=== PATIENT | male | born 1945 | race Caucasian/White ===

== ENCOUNTER → 2020-09-25 10:55 | Outpatient (BNVA) | payer MEDICARE, SELFPAY | PROVIDERS: Family Provider Nurse Practitioner Family; PCP Nurse Practitioner Family; Visit Provider Nurse Practitioner Family | DX: I10 Essential (primary) hypertension (principal); E11.9 Type 2 diabetes mellitus without complications; Z68.26 Body mass index [BMI] 26.0-26.9, adult; R03.0 Elevated blood-pressure reading, without diagnosis of hypertension | CPT/HCPCS: 80053; 80061; 83036; 84439; 84443 ==

== ENCOUNTER 2021-03-19 13:29 | Emergency (ER) | payer MEDICARE, SELFPAY ==
--- NOTE | 2021-03-19 13:32 | CT_ITS ---
WS: [id number] CT CERVICAL SPINE HISTORY: fall TECHNIQUE: Contiguous 2.5 mm axial imaging performed through the entire cervical spine. Sagittal and coronal reformats also performed. All CT scans at [facility] use at least one of these do se optimization techniques: automated exposure control; mA and/or kV adjustment per patient size (inc ludes targeted exams where dose is matched to clinical indication); or iterative reconstruction. DLP: 720.35 mGy.cm COMPARISON: None available. Posterior cervical alignment is normal. No fractures. Craniocervical junction is normally aligned. La teral masses of C1 and C2 are aligned. There is a mildly sclerotic appearance to the C5 vertebral bod y. C2-C3: Normal. C3-C4: Shallow central disc protrusion. C4-C5: Shallow central disc protrusion and mild LEFT foraminal narrowing. C5-C6: Mild osteophytic ridging resulting in mild bilateral foraminal stenosis. C6-C7: Moderate osteophytic ridging and broad-based central disc protrusion. Mild central and bilater al foraminal stenosis. C7-T1: Normal. Soft tissues are normal. Lung apices are clear. CT/CT cervical spin wo con* [id number] IMPRESSION: 1. No acute cervical spine fracture. 2. Very minimally sclerotic C5 vertebral body. Not a typical appearance for be nign hemangioma. 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 Consider follow-up bone scan imaging.
--- NOTE | 2021-03-19 13:32 | CT_ITS ---
WS: [id number] CT HEAD NONCONTRAST HISTORY: trauma/N/V TECHNIQUE: Contiguous axial imaging performed through the brain in 2.5 mm imaging. Bone and soft tiss ue windows. Sagittal and coronal reformats reviewed. All CT scans at [facility] use at le ast one of these dose optimization techniques: automated exposure control; mA and/or kV adjustment pe r patient size (includes targeted exams where dose is matched to clinical indication); or iterative r econstruction. DLP: 953.81 mGy.cm COMPARISON: None available. No acute intracranial hemorrhage, midline shift or mass effect. Mild atrophy and mild chronic microvascular ischemic disease. Ventricles: Normal size with no hydrocephalus. Paranasal sinuses: As visualized are clear. Mastoid air cells: Well pneumatized. Calvarium and scalp: Skull is intact with no soft tissue edema or swelling. CT/CT head wo con* [id number] IMPRESSION: No acute intracranial hemorrhage or edema.
[2021-03-19 14:13] VITALS: BP 155/85; PULSE 66; RESP 18; TEMP 36.8; O2SAT 97; BMI 27.2
--- NOTE | 2021-03-19 17:23 | ED_ITS ---
HPI - Head Injury General: Chief complaint: Head Injury Stated complaint: HEAD ISSUES Time Seen by Provider: 03/19/21 17:22 History of Present Illness: HPI Narrative: 75-year-old male presents emergency room with complaint of dizziness. He fell and hit his head about 2 weeks ago has had dizziness and lightheadedness since no loss of consciousness no vomiting. Is worse when he first stands up better when he has sitting or lying down. He has a history of diabetes mellitus he is on lisinopril. He is not on any anticoagulants. He does take aspirin daily. MD Complaint: head injury and fall Mechanism of Injury: fall Place: home Loss of Consciousness: no Location of injury: parietal Severity: moderate Radiation: none Other Injuries: none Associated symptoms: Deny amnesia, confusion, nausea, neck pain, numbness, syncope, tingling, vertigo, visual changes, vomiting or weakness Review of Systems Const: Denies: fever(s), chills, body aches, change in appetite, fatigue or malaise ENMT: Denies: throat pain, ear or mastoid pain, nasal discharge or nasal congestion Card: Denies: syncope Resp: Denies: dyspnea, productive cough or non-productive cough GI: Denies: nausea or vomiting : Denies: flank pain, dysuria, urinary frequency or urinary urgency Musc: Denies: neck pain Skin/Breast: Denies: rash or pruritus Neuro: Denies: vertigo or confusion PFS ED PFSH: Medical History HTN (hypertension) Type 2 diabetes mellitus Social History Smoking and tobacco status: never smoked Physical Exam Const: COMMON NORMALS: no acute distress GENERAL APPEARANCE: cooperative and comfortable ORIENTATION/CONSCIOUSNESS: Yes awake, Yes oriented to person, Yes oriented to place and Yes oriented to time HENMT: COMMON NORMALS: normocephalic, atraumatic and hearing grossly normal bilaterally HEAD & SCALP: normocephalic and atraumatic Neck/C-Spine: COMMON NORMALS: no JVD Lymph: LYMPHATIC: no lymphadenopathy noted and no lymphedema noted Resp: COMMON NORMALS: normal respiratory effort, No retractions, No use of accessory muscles and clear to auscultation bilaterally AUSCULTATION: clear to auscultation bilaterally Cardio: COMMON NORMALS: no JVD, regular rate, regular rhythm and No murmurs present (Cardio) RATE: regular rate RHYTHM: regular rhythm GI: COMMON NORMALS: Soft to palpation and No hepatosplenomegaly present AUSCULTATION: Yes normoactive bowel sounds PALPATION: Yes Soft to palpation, No Tenderness to palpation present (GI), No Guarding due to palpation present (GI) and Yes No hepatosplenomegaly present Extremity: COMMON NORMALS: normal to inspection, capillary refill normal, no clubbing, cyanosis or edema, no calf tenderness and no pedal edema Neuro: SENSORIUM/ORIENTATION: Yes oriented to person, Yes oriented to place and Yes oriented to time Skin: COMMON NORMALS: no rashes or lesions noted GENERAL SKIN EXAM: no ra shes or lesions noted Course Vital Signs: Vital signs: Vital Signs Temperature 98.2 F 03/19/21 14:13 Pulse Rate 71 03/19/21 19:56 Respiratory Rate 17 03/19/21 19:56 Blood Pressure 145/92 03/19/21 19:56 Pulse Oximetry 96 03/19/21 19:56 MDM - Head Injury MDM Narrative: Medical decision making narrative: No acute findings on the imaging. There is a question of some sclerotic area on the C5 vertebrae will refer him back to primary care for further follow-up discharge home for now. Lab Data: Labs: Lab Results 03/19/21 03/19/21 Range/Units 19:10 19:10 WBC 5.4 (4.0-10.0) 10^3/ uL RBC 5.32 H (4.1-5.3) 10^6/u L Hgb 15.5 (11.7-16.6) g/dL Hct 47.9 (42.0-52.0) % MCV 90.0 (80-94) fL MCH 29.1 (28.0-34.0) pg MCHC 32.4 (30.0-36.0) g/dL RDW 12.8 (12.1-15.1) % Plt Count 171 (130-400) 10^3/c mm MPV 10.1 (7.4-10.4) fL Neut % (Auto) 60.6 % Lymph % (Auto) 27.9 % [place] % (Auto) 8.7 % Eos % (Auto) 2.0 % Baso % (Auto) 0.4 % Neut # (Auto) 3.28 (1.8-7.7) 10^3/u L Lymph # (Auto) 1.5 (0.8-4.8) 10^3/u L [place] # (Auto) 0.5 (0.2-0.9) 10^3/u L Eos # (Auto) 0.1 (0.0-0.8) 10^3/u L Baso # (Auto) 0.0 (0.0-0.1) 10^3/u L Nucleated RBC % (a uto) 0 % Nucleated RBCs # 0.0 /100WBC Sodium 138 (136-145) mmol/L Potassium 4.1 (3.5-5.1) mmol/L Chloride 101 (98-107) mmol/L Carbon Dioxide 30 H (22-29) mmol/L Anion Gap 11.1 (5-19) BUN 19 (8-23) mg/dL Creatinine 0.8 (0.7-1.2) mg/dL GFR Calculation Not Reportable Glucose 76 (65-115) mg/dL Calculated Osmolal ity 287 (285-295) mOsm/k g Calcium 8.8 (8.5-10.5) mg/dL Discharge Plan Discharge Patient Disposition: Home Clinical Impression: Fall, HTN (hypertension), Type 2 diabetes mellitus Condition: Stable Prescriptions: No Action aspirin [Adult Aspirin Regimen] 81 mg tablet,delayed release (DR/EC) 81 mg PO DAILY RF: 0 glimepiride 2 mg tablet 2 mg PO BID Qty: 180 RF: 1 lisinopril 20 mg tablet 20 mg PO DAILY Qty: 90 RF: 1 Janumet 50-1,000 mg tablet 1 tab PO BEDTIME RF: 0 Discharge Orders: Discharge ED (Routine); Ordered 03/19/21 Ordered By: Norm Frances Referrals: Neeru Hickey NP [Primary Care Provider] - Discharge Diet: Usual diet Discharge Activity: Increase activity as tolerated Patient Instructions: Opioid Safety Coding Level of Care Code ED Technical Engineer for Lisetteg Fwd Exam Comprehensive
--- NOTE | 2021-03-19 17:27 | ECG_ITS ---
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 Measurements Intervals [place] Rate: 65 P: 47 [place]: 193 QRS: -49 QRSD: 106 T: -7 QT: 384 QTc: 401 Interpretive Statements SINUS RHYTHM WITH OCCASIONAL ECTOPIC PREMATURE COMPLEXES PATTERN CONSISTENT WITH PULMONARY DISEASE LEFT ANTERIOR FASCICULAR BLOCK [QRS AXIS <= -45, QR IN I, RS IN II] NONSPECIFIC T-WAVE ABNORMALITY Compared to ECG 02/20/2019 05:35:38 Left anterior fascicular block now present Left-axis deviation no longer present T-wave abnormality still present Electronically Signed On 03-19-2021 19:23:25 CDT by James Delgado M.D. [email or web address].Overlay Studio/store/[id number]
--- NOTE | 2021-03-19 19:01 | PC.NURSE ---
Report received from PAM Nicholson and care transferred to PAM Marcial
[2021-03-19 19:15] VITALS: BP 173/104; BP 187/101; BP 195/93; PULSE 62; PULSE 70; PULSE 72
[2021-03-19 19:17] LABS: Basophils % 0.4 %; Eosinophils # 0.1 10^3/uL (0.0-0.8); Hematocrit 47.9 % (42.0-52.0); Hemoglobin 15.5 g/dL (11.7-16.6); Lymphocytes # 1.5 10^3/uL (0.8-4.8); Lymphocytes % 27.9 %; Mean Corpuscular HGB Conc 32.4 g/dL (30.0-36.0); Mean Corpuscular Hemoglobin 29.1 pg (28.0-34.0); Mean Platelet Volume 10.1 fL (7.4-10.4); Monocytes # 0.5 10^3/uL (0.2-0.9); Monocytes % 8.7 %; Neutrophils # 3.28 10^3/uL (1.8-7.7); Neutrophils % 60.6 %; Nucleated Red Blood Cells % 0 %; Platelet Count 171 10^3/cmm (130-400); Red Blood Count 5.32 10^6/uL (4.1-5.3); Red Cell Distribution Width 12.8 % (12.1-15.1); White Blood Count 5.4 10^3/uL (4.0-10.0)
[2021-03-19 19:18] VITALS: PULSE 67; RESP 19; O2SAT 97
[2021-03-19 19:34] LABS: Anion Gap 11.1 (5-19); Blood Urea Nitrogen 19 mg/dL (8-23); Calcium 8.8 mg/dL (8.5-10.5); Carbon Dioxide 30 mmol/L (22-29); Chloride 101 mmol/L (98-107); Glucose 76 mg/dL (65-115); Osmolality Calculated 287 mOsm/kg (285-295); Potassium 4.1 mmol/L (3.5-5.1); Sodium 138 mmol/L (136-145)
[2021-03-19 19:56] VITALS: BP 145/92; PULSE 71; RESP 17; O2SAT 96
--- NOTE | 2021-03-27 11:11 | DCPLANNER ---
manager oncology had message to schedule a follow up appointment for patient with his primary care physician. Patient had a follow up appointment scheduled with his primary care on 03.25.21 and he attended that appointment.
== END 2021-03-19 19:59 | disposition home or self-care (01) ==
PROVIDERS: Emergency Provider Family Medicine; PCP Nurse Practitioner Family
DX: I10 Essential (primary) hypertension (principal); E11.9 Type 2 diabetes mellitus without complications; Z79.82 Long term (current) use of aspirin; W19.XXXA Unspecified fall, initial encounter
CPT/HCPCS: 36415; 70450; 72125; 80048; 85025; 93005; 99283

== ENCOUNTER → 2021-10-21 14:10 | Outpatient (BNVA) | payer MEDICARE, SELFPAY | PROVIDERS: PCP Nurse Practitioner Family; Visit Provider Nurse Practitioner Family | DX: E11.9 Type 2 diabetes mellitus without complications (principal); I10 Essential (primary) hypertension; Z68.27 Body mass index [BMI] 27.0-27.9, adult | CPT/HCPCS: 80053; 80061; 83036; 84443 ==

== ENCOUNTER → 2022-06-11 10:00 | Outpatient (BNVA) | payer MEDICARE, SELFPAY | PROVIDERS: PCP Nurse Practitioner Family; Visit Provider Nurse Practitioner Family | DX: E11.9 Type 2 diabetes mellitus without complications (principal); I10 Essential (primary) hypertension | CPT/HCPCS: 80053; 80061; 83036 ==

== ENCOUNTER → 2022-10-01 14:27 | Outpatient (BNVA) | payer MEDICARE, SELFPAY | PROVIDERS: PCP Nurse Practitioner Family | DX: J02.9 Acute pharyngitis, unspecified (principal); J06.9 Acute upper respiratory infection, unspecified | CPT/HCPCS: 87400 ==

== ENCOUNTER 2022-10-02 22:42 | Inpatient (IN) | payer MEDICARE, SELFPAY ==
[2022-10-02 22:49] VITALS: BP 167/109; PULSE 112; RESP 22; TEMP 36.8; O2SAT 92; BMI 26.5
--- NOTE | 2022-10-02 22:51 | ECG_ITS ---
[facility] Test Date: 2022-10-02 Pat Name: Alexander Ferrell Department: Room: Gender: Male Security Services Manager: : 1945 Requested By: Chrsi Comer Order Number: [id number] Frankie MD: Felicita Donaldson M.D. Measurements Intervals [place] Rate: 105 P: 52 AL: 187 QRS: -76 QRSD: 122 T: 95 QT: 341 QTc: 452 Interpretive Statements SINUS TACHYCARDIA LEFT ANTERIOR FASCICULAR BLOCK [QRS AXIS <= -45, QR IN I, RS IN II] MODERATE ST DEPRESSION [0.05+ mV ST DEPRESSION] ABNORMAL QRS-T ANGLE [QRS-T AXIS DIFFERENCE > 60] INTERPRETATION BASED ON A DEFAULT AGE OF 40 YEARS Compared to ECG 03/19/2021 18:21:05 ST (T wave) deviation now present Sinus rhythm no longer present T-wave abnormality no longer present Electronically Signed On 10-04-2022 13:43:30 IN HOME SALES CONSULTANT by Felicita Donaldson M.D. [id number] pat
[2022-10-02 23:00] VITALS: BP 134/82; PULSE 95; RESP 26; O2SAT 92
--- NOTE | 2022-10-02 23:04 | XRR_ITS ---
PROCEDURE INFORMATION: Exam: XR Chest Exam date and time: 10/03/2022 12:14 AM Age: 77 years old Clinical indication: Shortness of breath; Additional info: SOB TECHNIQUE: Imaging protocol: Radiologic exam of the chest. Views: 1 view. COMPARISON: CR XR chest 1V [id number] 02/20/2019 5:13 AM FINDINGS: Lungs: Left diaphragmatic eventration with left lower lobe atelectasis versus minimal infiltrate. Right mid lung field chronic interstitial fibrotic changes. Pleural spaces: Unremarkable. No pleural effusion. No pneumothorax. Heart/Mediastinum: Unremarkable. No cardiomegaly. Bones/joints: Unremarkable. XR/XR chest 1V portable [id number] IMPRESSION: 1. Left diaphragmatic eventration with left lower lobe atelectasis versus minimal infiltrate. 2. Right mid lung field chronic interstitial fibrotic changes.
[2022-10-02 23:15] VITALS: BP 142/113; PULSE 98; RESP 33; O2SAT 91
--- NOTE | 2022-10-02 23:15 | ED_ITS ---
HPI - SOB/Dyspnea General: Chief Complaint: Shortness of Breath/Dyspnea Stated Complaint: SOB Time Seen by Provider: 10/02/22 22:47 Source: patient Mode of arrival: ambulatory Limitations: no limitations History of Present Illness: HPI Narrative: 77-year-old male who states that he has been having cough congestion or shortness of breath the last 2 to 3 days. He states he has had some body aches low-grade fevers he is not minimal distress here he denies any pain he denies an y vomiting or diarrhea denies any worsening improving factors. Associated symptoms: Deny abdominal pain, chest pain, fever(s), nausea or vomiting Review of Systems Const: Denies: fever(s), chills, body aches or change in appetite Eyes: Denies: blurry vision or eye discomfort ENMT: Denies: throat pain or dental pain Card: Denies: chest pain Resp: Reports: dyspnea GI: Denies: abdominal pain, nausea, vomiting or diarrhea : Denies: dysuria Musc: Denies: neck pain or back pain Skin/Breast: Denies: rash Neuro: Denies: headache(s) Psych: Denies: depression [place]/Lymph: Denies: easy bruising All/Imm: Denies: urticaria PFSH ED PFSH: Medical History HTN (hypertension) Type 2 diabetes mellitus Social History Smoking and tobacco status: never smoked Physical Exam Const: COMMON NORMALS: patient oriented x3 HENMT: COMMON NORMALS: normocephalic and atraumatic HEAD & SCALP: normocephalic and atraumatic Eye: COMMON NORMALS: Equal, round and reactive pupils present and EOMs intact bilaterally PUPIL: Yes Equal, round and reactive pupils present Neck/C-Spine: COMMON NORMALS: full ROM and supple Chest: COMMONS NORMALS: normal inspection of the chest and normal palpation of entire chest wall Resp: COMMON NORMALS: normal respiratory effort, No retractions, No use of accessory muscles and clear to auscultation bilaterally AUSCULTATION: clear to auscultation bilaterally Cardio: COMMON NORMALS: regular rate, regular rhythm and No murmurs present (Cardio) RATE: regular rate RHYTHM: regular rhythm GI: COMMON NORMALS: Normal to inspection, nondistended, normoactive bowel sounds present, Soft to palpation, non-tender and no masses PALPATION: Yes Soft to palpation Extremity: COMMON NORMALS: normal to inspection and full ROM Neuro: COMMON NORMALS: patient oriented x3, moves all extremities and no focal motor deficits Psych: COMMON NORMALS: mental status grossly normal, Normal thought process present and cooperative THOUGHT PROCESS: Normal thought process present Skin: COMMON NORMALS: no rashes or lesions noted and no wounds GENERAL SKIN EXAM: no rashes or lesions noted Course Vital Signs: Vital signs: Vital Signs Temperature 98.3 F 10/02/22 22:49 Pulse Rate 89 10/03/22 01:30 Respiratory Rate 21 H 10/03/22 01:30 Blood Pressure 151/80 10/03/22 01:30 Pulse Oximetry 94 10/03/22 01:30 Oxygen Delivery Me thod 10/03/22 01:15 Oxygen Flow Rate 2 10/03/22 01:15 MDM - SOB/Dyspnea Medical Decision Making Patient presents here with shortness of breath he was found to have a pulmonary emboli on his CT scan he has no signs of heart strain troponin here is normal spoke to hospitalist will admit patient start on Lovenox. Lab Data 10/02/22 22:56 10/02/22 22:56 Labs/Radiology: Radiology Impressions Chest X-Ray 10/02/22 23:04 IMPRESSION: 1. Left diaphragmatic eventration with left lower lobe atelectasis versus minimal infiltrate. 2. Right mid lung field chronic interstitial fibrotic changes. Chest CTA 10/02/22 23:40 IMPRESSION: 1. Multiple bilateral pulmonary emboli, negative for right heart strain with an RV to LV ratio of 9.3. 2. Cardiomegaly. 3. Coronary artery atherosclerotic calcifications. 4. Trace bilateral pleural effusions. 5. Cholecystectomy. 6. Bilateral dependent atelectasis versus infiltrate. 7. 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 ADDENDUM: 10/03/22 0036 THIS REPORT CONTAINS FINDINGS THAT MAY BE CRITICAL TO PATIENT CARE. The findings were verbally communicated via telephone conference with WESLY FRANKLIN at 12:35 AM NETWORK SUPPORT MANAGER on 10/03/2022. The findings were acknowledged and understood. Laboratory Results WBC 7.8 10^3/uL (4.0-10.0) 10/02/22 22:56 RBC 6.00 10^6/uL (4.1-5.3) H 10/02/22 22:56 Hgb 17.7 g/dL (11.7-16.6) H 10/02/22 22:56 Hct 53.9 % (42.0-52.0) H 10/02/22 22:56 MCV 89.8 fl (80-94) 10/02/22 22:56 MCH 29.5 pg (28.0-34.0) 10/02/22 22:56 MCHC 32.8 g/dL (30.0-36.0) 10/02/22 22:56 RDW 12.9 % (12.1-15.1) 10/02/22 22:56 Plt Count 190 10^3/cmm (130-400) 10/02/22 22:56 MPV 10.5 fL (7.4-10.4) H 10/02/22 22:56 Neut % (Auto) 66.1 % 10/02/22 22:56 Lymph % (Auto) 22.1 % 10/02/22 22:56 [place] % (Auto) 9.8 % 10/02/22 22:56 Eos % (Auto) 1.3 % 10/02/22 22:56 Baso % (Auto) 0.1 % 10/02/22 22:56 Neut # (Auto) 5.13 10^3/uL (1.8-7.7) 10/02/22 22:56 Lymph # (Auto) 1.7 10^3/uL (0.8-4.8) 10/02/22 22:56 [place] # (Auto) 0.8 10^3/uL (0.2-0.9) 10/02/22 22:56 Eos # (Auto) 0.1 10^3/uL (0.0-0.8) 10/02/22 22:56 Baso # (Auto) 0.0 10^3/uL (0.0-0.1) 10/02/22 22:56 Nucleated RBC % (auto) 0 % 10/02/22 22:56 Nucleated RBCs # 0.0 /100WBC 10/02/22 22:56 PT 14.60 SECONDS (12.1-14.9) 10/02/22 22:56 INR 1.11 (0.8-1.2) 10/02/22 22:56 Specimen Type Arterial 10/02/22 23:12 Sample Site Radial, right 10/02/22 23:12 ABG pH 7.45 (7.35-7.45) 10/02/22 23:12 ABG pCO2 34.3 mmHg (35-45) L 10/02/22 23:12 ABG pO2 54.6 mmHg (80.0-100.0) L 10/02/22 23:12 ABG HCO3 23.5 mmol/L (22-26) 10/02/22 23:12 ABG Base Excess 0.1 mmol/L (-2.0-2.0) 10/02/22 23:12 David Test Pos 10/02/22 23:12 Hematocrit 51.3 % (42-52) 10/02/22 23:12 Hgb O2 Saturation 89.1 % (95-100) L 10/02/22 23:12 Carboxyhemoglobin 1.3 %THgb (0.4-20.1) 10/02/22 23:12 Methemoglobin 0.6 % (0.4-1.5) 10/02/22 23:12 Total Hemoglobin 16.8 g/dL (14-18) 10/02/22 23:12 O2 Delivery Device None 10/02/22 23:12 FiO2 21.0 % 10/02/22 23:12 Advertising Sales Manager ID [place] 10/02/22 23:12 Sodium 135 mmol/L (136-145) L 10/02/22 22:56 Potassium 4.3 mmol/L (3.5-5.1) 10/02/22 22:56 Chloride 100 mmol/L (98-107) 10/02/22 22:56 Carbon Dioxide 23 mmol/L (22-29) 10/02/22 22:56 Anion Gap 16.3 (5-19) 10/02/22 22:56 BUN 17 mg/dL (8-23) 10/02/22 22:56 Creatinine 0.9 mg/dL (0.7-1.2) 10/02/22 22:56 GFR Calculation Not Reportable 10/02/22 22:56 Glucose 165 mg/dL (65-115) H 10/02/22 22:56 Calculated Osmolality 285 mOsm/kg (285-295) 10/02/22 22:56 Calcium 10.0 mg/dL (8.5-10.5) 10/02/22 22:56 Total Bilirubin 1.4 mg/dL (0.15-1.2) H 10/02/22 22:56 AST 26 U/L (0-40) 10/02/22 22:56 ALT 27 U/L (0-41) 10/02/22 22:56 Alkaline Phosphatase 97 U/L (40-130) 10/02/22 22:56 Troponin T Baseline 25 ng/L (0-15) H 10/02/22 22:56 Troponin T 120 Minute 23.09 ng/L (0-15) H 10/03/22 00:55 Delta Troponin T -1.91 ABS# (0-10) L 10/03/22 00:55 NT-Pro-B Natriuret Pep 1157 pg/mL (0-450) H 10/02/22 22:56 Total Protein 7.9 g/dL (6.6-8.7) 10/02/22 22:56 Albumin 4.3 g/dL (3.5-5.2) 10/02/22 22:56 Globulin 3.6 g/dL (1.3-4.6) 10/02/22 22:56 Influenza Type A Ag negative (Negative) 10/02/22 23:11 Influenza Type B Ag negative (Negative) 10/02/22 23:11 EKG Data EKG 1: I personally reviewed and interpreted this EKG as follows: EKG Interpretation Date: 10/02/22 EKG interpretation time: 22:51 Interpretation: sinus tach hr [address] or t wave abnormalities qrs 122 qtc 402 Discharge Plan Discharge Patient Disposition: Admitted As Inpatient Clinical Impression: Pulmonary embolism Condition: Stable Prescriptions: No Action aspirin [Adult Aspirin Regimen] 81 mg tablet,delayed release (DR/EC) 81 mg PO DAILY Janumet 50-1,000 mg tablet See Rx Instructions .ROUTE .COMPLEX Qty: 180 1RF Dose Instruction: TAKE ONE TABLET BY MOUTH TWICE A DAY Rx Instructions: TAKE ONE TABLET BY MOUTH TWICE A DAY prednisone 20 mg tablet 20 mg PO BID 5 Days Qty: 10 0RF doxycycline hyclate 100 mg capsule 100 mg PO BID 5 Days Qty: 10 0RF glimepiride 2 mg tablet See Rx Instructions .ROUTE .COMPLEX Qty: 180 0RF Dose Instruction: TAKE ONE TABLET BY MOUTH TWICE A DAY Rx Instructions: TAKE ONE TABLET BY MOUTH TWICE A DAY lisinopril 20 mg tablet See Rx Instructions .ROUTE .COMPLEX Qty: 90 1RF Dose Instruction: TAKE ONE TABLET BY MOUTH ONCE DAILY Rx Instructions: TAKE ONE TABLET BY MOUTH ONCE DAILY Referrals: Neeru Hickey NP [Primary Care Provider] - Coding Level of Care Code ED Elevators Inspector for Chg Fwd Exam Comprehensive
[2022-10-02 23:17] LABS: Basophils % 0.1 %; Eosinophils # 0.1 10^3/uL (0.0-0.8); Eosinophils % 1.3 %; Hematocrit 53.9 % (42.0-52.0); Hemoglobin 17.7 g/dL (11.7-16.6); Lymphocytes # 1.7 10^3/uL (0.8-4.8); Lymphocytes % 22.1 %; Mean Corpuscular HGB Conc 32.8 g/dL (30.0-36.0); Mean Corpuscular Hemoglobin 29.5 pg (28.0-34.0); Mean Corpuscular Volume 89.8 fl (80-94); Mean Platelet Volume 10.5 fL (7.4-10.4); Monocytes # 0.8 10^3/uL (0.2-0.9); Monocytes % 9.8 %; Neutrophils # 5.13 10^3/uL (1.8-7.7); Neutrophils % 66.1 %; Nucleated Red Blood Cells % 0 %; Platelet Count 190 10^3/cmm (130-400); Red Cell Distribution Width 12.9 % (12.1-15.1); White Blood Count 7.8 10^3/uL (4.0-10.0)
[2022-10-02 23:22] LABS: INR 1.11 (0.8-1.2)
[2022-10-02 23:24] LABS: ABG PCO2 34.3 mmHg (35-45); ABG PH Result 7.45 (7.35-7.45); Arterial Blood Gas Hematocrit 51.3 % (42-52); Base Excess ABG 0.1 mmol/L (-2.0-2.0); Blood Gas Allen Test Pos; Blood Gas Operator Identificat WALCI; Blood Gas Sample Site Radial, right; Blood Gas Sample Type Arterial; Carboxyhemoglobin 1.3 %THgb (0.4-20.1); HCO3 ABG 23.5 mmol/L (22-26); HGB O2 Sat 89.1 % (95-100); Methemoglobin 0.6 % (0.4-1.5); PO2 ABG 54.6 mmHg (80.0-100.0); Total Hemoglobin 16.8 g/dL (14-18)
[2022-10-02 23:28] VITALS: PULSE 90; RESP 18; O2SAT 91
[2022-10-02] MEDS: ipratropium-albuterol 3 mL Neb INHALATION (23:29)
[2022-10-02 23:33] LABS: Troponin(5th) Baseline 25 ng/L (0-15)
[2022-10-02 23:36] LABS: Influenza A by IFA negative (Negative); Influenza B by IFA negative (Negative)
[2022-10-02 23:39] LABS: Alanine Aminotransferase 27 U/L (0-41); Albumin Level 4.3 g/dL (3.5-5.2); Alkaline Phosphatase 97 U/L (40-130); Aspartate Amino Transferase 26 U/L (0-40); Blood Urea Nitrogen 17 mg/dL (8-23); Carbon Dioxide 23 mmol/L (22-29); Chloride 100 mmol/L (98-107); Globulin 3.6 g/dL (1.3-4.6); Glucose 165 mg/dL (65-115); NT Pro B Type Natriuretic Pept 1157 pg/mL (0-450); Osmolality Calculated 285 mOsm/kg (285-295); Sodium 135 mmol/L (136-145); Total Bilirubin 1.4 mg/dL (0.15-1.2); Total Protein 7.9 g/dL (6.6-8.7)
--- NOTE | 2022-10-02 23:40 | CTR_ITS ---
PROCEDURE INFORMATION: Exam: CTA Chest With Contrast Exam date and time: 10/03/2022 12:09 AM Age: 77 years old Clinical indication: Shortness of breath; Additional info: SOB TECHNIQUE: Imaging protocol: Computed tomographic angiography of the chest with contrast. 3D rendering (Not supervised by radiologist): MIP and/or 3D reconstructed images were created by the technologist. Radiation optimization: All CT scans at this facility use at least one of these dose optimization techniques: automated exposure control; mA and/or kV adjustment per patient size (includes targeted exams where dose is matched to clinical indication); or iterative reconstruction. Contrast material: OMNIPAQUE 350; Contrast volume: 83 ml; Contrast route: INTRAVENOUS (IV); COMPARISON: CT angio chest PE protcl [id number] 01/20/2017 9:13 AM RADIATION DOSE METRICS: Total DLP (mGy-cm): 342.52 FINDINGS: Pulmonary arteries: Multiple bilateral pulmonary emboli, negative for right heart strain with an RV to LV ratio of 9.3. Aorta: Unremarkable. No aortic aneurysm. No aortic dissection. Lungs: Bilateral dependent atelectasis versus infiltrate. Pleural spaces: Trace bilateral pleural effusions. Heart: Cardiomegaly. Coronary artery atherosclerotic calcifications. Lymph nodes: Unremarkable. No enlarged lymph nodes. Gallbladder and bile ducts: Cholecystectomy. Bones/joints: Several benign-appearing hemangiomas in the spine. Soft tissues: Left hepatic lobe cyst. CT/CT angio chest PE protcl [id number] IMPRESSION: 1. Multiple bilateral pulmonary emboli, negative for right heart strain with an RV to LV ratio of 9.3. 2. Cardiomegaly. 3. Coronary artery atherosclerotic calcifications. 4. Trace bilateral pleural effusions. 5. Cholecystectomy. 6. Bilateral dependent atelectasis versus infiltrate. 7. 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
[2022-10-02 23:45] VITALS: BP 124/78; PULSE 75; RESP 32; O2SAT 90
[2022-10-02 23:51] LABS: Anion Gap 16.3 (5-19); Potassium 4.3 mmol/L (3.5-5.1)
[2022-10-03] VITALS (42 sets, daily range): BP systolic 100–173; BP diastolic 53–97; PULSE 61–94; RESP 18–33; TEMP 36.6; O2SAT 89–99; BMI 25.7
[2022-10-03] MEDS: diphenhydrAMINE 50 mg/mL SDV 1mL IVP (00:01)
[2022-10-03] MEDS: iohexol 350 mg/mL 500 mL Btl (per mL) IV (00:15)
[2022-10-03] MEDS: enoxaparin 80 mg/0.8 mL Syringe SUBCUT ×2 (00:56→12:01)
--- NOTE | 2022-10-03 01:05 | ECG_ITS ---
[facility] Test Date: 2022-10-03 Pat Name: Alexander Ferrell Department: Room: Gender: Male Riding Instructor: : 1945 Requested By: Chris Comer Order Number: [id number] Frankie MD: Felicita Donaldson M.D. Measurements Intervals [place] Rate: 94 P: 53 OR: 174 QRS: -71 QRSD: 114 T: 91 QT: 376 QTc: 470 Interpretive Statements SINUS RHYTHM PATTERN CONSISTENT WITH PULMONARY DISEASE LEFT ANTERIOR FASCICULAR BLOCK [QRS AXIS <= -45, QR IN I, RS IN II] ABNORMAL QRS-T ANGLE [QRS-T AXIS DIFFERENCE > 60] Compared to ECG 10/02/2022 22:51:48 Sinus tachycardia no longer present ST (T wave) deviation no longer present Electronically Signed On 10-04-2022 15:38:27 SPRAY GUN STRIPER by Felicita Donaldson M.D. [email or web address] [facility].Experifun/store/OM/[id number]
[2022-10-03 01:16] LABS: Troponin 5 2HR 23.09 ng/L (0-15)
[2022-10-03 01:31] LABS: Troponin 5 2HR Delta -1.91 ABS# (0-10)
--- NOTE | 2022-10-03 01:43 | P.HP_ITS ---
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 He also has been having some body aches and low-grade fevers. Not having any severe respiratory distress. Shortness of breath does not improve with anything but does slightly worsen on exertion. Denies abdominal pain, chest pain, fever, nausea, vomiting, diarrhea, chills, change in appetite. Patient does not smoke. Chest x-ray in the ER done showed right midlung field chronic interstitial fibrotic changes, left diaphragmatic eventration with left lower lobe atelectasis versus minimal infiltrate. CTA chest showed multiple bilateral pulmonary emboli, negative for right heart strain with an RV to LV ratio of 0.93. Cardiomegaly, coronary artery atherosclerotic calcifications, trace bilateral pleural effusions, several benign-appearing hemangiomas in the spine, cholecystectomy, bilateral dependent atelectasis versus infiltrate. EKG showed sinus tachycardia heart rate 105. No ST or T wave abnormalities. Patient states he is had blood clots in his legs before. He used to be on Coumadin but then developed blisters and therefore had to be taken off of the Coumadin. He is unsure why he is hypercoagulable. Denies a history of cancer. Does have a history of cancer in the family. Dad has lung cancer. Drove to [place] recently. Sedentary lifestyle. Medications/Allergies Home Medications Medication Instructions Recorded Confirmed Last Taken Type aspirin 81 mg tablet,delayed 81 mg PO DAILY 09/25/20 10/01/22 03/18/21 History release (Adult Aspirin Regimen) glimepiride 2 mg tablet See Rx Instructions .Route 04/30/22 10/01/22 Unknown Rx .COMPLEX #180 tabs sitagliptin 50 mg-metformin 1,000 See Rx Instructions .Route 06/11/22 10/01/22 Unknown Rx mg tablet (Janumet) .COMPLEX #180 tabs lisinopril 20 mg tablet See Rx Instructions .Route 06/14/22 10/01/22 Unknown Rx .COMPLEX #90 tabs doxycycline hyclate 100 mg capsule 100 mg PO BID 5 days #10 caps 10/01/22 10/01/22 Unknown Rx prednisone 20 mg tablet 20 mg PO BID 5 days #10 tabs 10/01/22 10/01/22 Unknown Rx Allergies Allergy/AdvReac Type Severity Reaction Status Date / Time codeine Allergy Unknown Verified 10/01/22 13:52 hydrocodone Allergy Unknown Verified 10/01/22 13:52 iodine Allergy ADR-Nausea Verified 10/01/22 13:52 morphine Allergy Unknown Verified 10/01/22 13:52 pregabalin [From Lyrica] Allergy ADR-Chest Verified 10/01/22 13:52 Pain warfarin [From Coumadin] Allergy Unknown Verified 10/01/22 13:52 PFSH Acute PFSH: Medical History HTN (hypertension) Type 2 diabetes mellitus Social History Smoking and tobacco status: never smoked Vitals/I&O/Wt Last Vital Signs Temp 98.3 F 10/02/22 22:49 Pulse 89 10/03/22 01:30 Resp 21 H 10/03/22 01:30 BP 151/80 10/03/22 01:30 Pulse Ox 94 10/03/22 01:30 O2 Del Method 10/03/22 01:15 O2 Flow Rate 2 10/03/22 01:15 Weight last 48 hrs Weight 83.915 kg Physical Exam Narrative: General: Alert oriented x3, patient seen laying in bed HEENT: Normocephalic, atraumatic, EOMI, breathing comfortably on 2 L nasal cannula. Cardio: Regular rate rhythm, normal S1-S2, Respiratory: There to auscultation bilaterally, no wheezes no rhonchi GI: Abdomen soft, nontender, nondistended, bowel sounds + Behavior: Appropriate and cooperative Extremities: no edema, no cyanosis Data 10/02/22 22:56 10/02/22 22:56 A&P Assessment and plan (1) Pulmonary embolism: (2) BMI 27.0-27.9,adult: (3) Type 2 diabetes mellitus: Qualifiers: Diabetes mellitus group home insulin use: without group home use Diabetes mellitus complication status: without complication Qualified Code(s): E11.9 - Type 2 diabetes mellitus without complications (4) HTN (hypertension): Qualifiers: Hypertension type: primary hypertension Qualified Code(s): I10 - Essential (primary) hypertension (5) DVT (deep venous thrombosis): Plan #Dyspnea on exertion and rest secondary to bilateral pulmonary emboli, right heart strain negative, unprovoked #History of DVT years ago, used to be on Coumadin. #Hypertension #Type 2 diabetes mellitus #Left lung lobectomy 20 years ago. Details unknown #Polycythemia, hemoglobin 17.7, hematocrit 53.9 #Elevated BNP 1157 -Dad has lung cancer. Patient has a history of DVT in the past. Used to be on Coumadin. ? Check echo ? Check venous Doppler bilateral lower extremity to rule out DVT ? Therapeutic Lovenox twice daily ? Eliquis at discharge ? May require oxygen at discharge. We will do home oxygen evaluation ? Sliding scale insulin low-dose intensity her blood sugar control. Check a CHS ? Check hemoglobin A1c, TSH ? Continue aspirin, lisinopril 20 daily ? Hold Janumet. ? Patient will require hypercoagulable work-up. He also has polycythemia ? Consider referral to hematology at discharge. He will need work-up of polycythemia as well. Patient is not a smoker. I will check EPO level. Full code DVT prophylaxis therapeutic Lovenox Attestations Medical Necessity Statement*: Greater than 2 midnight stay for acute bilateral pulmonary embolism and work-up and management of that. 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
--- NOTE | 2022-10-03 02:15 | PC.NURSE ---
Report called to ICU Dotty
--- NOTE | 2022-10-03 04:10 | USCV_ITS ---
Ferrell Alexander Age: 77 Gender: M : 1945 Exam Date: 10/03/2022 07:09 Ordering Phys: Myesha Guzman MD Technologist: Darek Moreno [place] [facility] [place] Indication: sob chest pain BP: 121 / 71 HR: 74 Rhythm: Sinus Technical Quality: Adequate MEASUREMENTS (Male / Female) Normal Values 2D ECHO LV Diastolic Diameter PLAX 4.0 cm 4.2 - 5.9 / 3.9 - 5.3 cm LV Systolic Diameter PLAX 2.6 cm IVS Diastolic Thickness 1.0 cm 0.6 - 1.0 / 0.6 - 0.9 cm IVS Systolic Thickness 1.3 cm LVPW Diastolic Thickness 0.9 cm 0.6 - 1.0 / 0.6 - 0.9 cm LVPW Systolic Thickness 1.3 cm LVOT Diameter 2.1 cm LV Ejection Fraction 2D Teich 56.2 % LV Ejection Fraction MOD 2C 64.4 % LV Ejection Fraction 2C AL 65.0 % LA Diameter 3.5 cm Aorta at Sinotubular Diameter 2.6 cm IVC Diameter 1.4 cm M-MODE Aortic Annulus Diameter 3.7 cm LA Ao Ratio MM 1.0 MV E Point Septal Separation 0.7 cm DOPPLER AV Peak Velocity 82.0 cm/s LVOT Peak Velocity 74.0 cm/s AV Area Cont Eq vti 4.4 cm squared AV Area Cont Eq pk 3.0 cm squared MV Area PHT 5.0 cm squared Mitral E to A Ratio 0.7 MV E' Velocity 28.5 cm/s Mitral E to MV E' Ratio 7.1 Mitral E to LV E' Lateral Ratio 9.5 Mitral E to LV E' Septal Ratio 5.8 TR Peak Velocity 180.3 cm/s TR Peak Gradient 13.0 mmHg TV Peak E Velocity 77.0 cm/s Right Atrial Pressure 3.0 mmHg Pulmonary Artery Systolic Pressu 16.0 mmHg PV Peak Velocity 52.0 cm/s RV Acceleration Time 0.1 s FINDINGS Left Ventricle Normal left ventricular size and systolic function, EF 62 %. Somewhat dyskinetic basal inferior wall segment.Grade I/IV diastolic dysfunction (abnormal relaxation filling pattern), normal to mildly elevated filling pressures. Right Ventricle The right ventricle is normal in size and function. Right Atrium The right atrium is normal in size. Left Atrium The left atrium is normal in size. Mitral Valve No gross abnormalities noted Aortic Valve Thickened aortic valve. Mild aortic valve calcification. Tricuspid Valve No gross abnormalities noted. Trace of tricuspid regurgitation Pulmonic Valve No gross abnormalities noted Pericardium Normal pericardium without effusion. Aorta Normal aortic annulus size. IVC Normal inferior vena cava. CONCLUSIONS Normal left ventricular size and systolic function, EF 62 %. Somewhat dyskinetic basal inferior wall segment.Grade I/IV diastolic dysfunction (abnormal relaxation filling pattern), normal to mildly elevated filling pressures. Thickened aortic valve. Mild aortic valve calcification. There is no pericardial effusion. There are no intracardiac masses. Possibly normal PA pressure Compared to the previous study from a 01/19/2017, the wall motion abnormality appears to be new Dr Felicita Donaldson MD [facility] (Electronically Signed) Final Date: 04 October 2022 08:11 S
--- NOTE | 2022-10-03 04:16 | USR_ITS ---
PROCEDURE INFORMATION: Exam: US Duplex Lower Extremity Veins, Bilateral Exam date and time: 10/03/2022 4:43 AM Age: 77 years old Clinical indication: Edema, localized; Lower extremity, bilateral; Additional info: R/O dvt TECHNIQUE: Imaging protocol: Real-time Duplex ultrasound of the bilateral extremities with 2-D palacio scale, color Doppler flow and spectral waveform analysis with image documentation. Complete exam focused on the bilateral lower extremity veins. COMPARISON: No relevant prior studies available. FINDINGS: Right deep veins: Unremarkable. The common femoral, femoral, proximal profunda femoral and popliteal veins are patent without thrombus. Normal Doppler waveforms. Normal compressibility and/or augmentation response. Right superficial veins: Saphenofemoral junction is patent without thrombus. Left deep veins: There is nonocclusive thrombosis of the left common femoral vein, and occlusive thrombosis of the proximal left femoral and proximal profunda femoral veins. The mid to distal left femoral and popliteal veins are patent without thrombus with normal Doppler waveforms and normal compressibility and/or augmentation response. Left superficial veins: Saphenofemoral junction is patent without thrombus. Soft tissues: Unremarkable. US/[id number] IMPRESSION: Nonocclusive thrombosis of the left common femoral vein, and occlusive thrombosis of the left proximal femoral and proximal profunda femoral veins.
[2022-10-03 06:29] LABS: Troponin 5 6HR 15.62 ng/L (0-15)
--- NOTE | 2022-10-03 06:30 | ECG_ITS ---
[facility] Test Date: 2022-10-03 Pat Name: Alexander Ferrell Department: Room: ICU10 Gender: Male Finisher Map And Chart: : 1945 Requested By: Chris Comer Order Number: [id number] Frankie MD: Felicita Donaldson M.D. Measurements Intervals [place] Rate: 78 P: 47 NM: 189 QRS: -70 QRSD: 119 T: 108 QT: 414 QTc: 472 Interpretive Statements SINUS RHYTHM PATTERN CONSISTENT WITH PULMONARY DISEASE LEFT ANTERIOR FASCICULAR BLOCK [QRS AXIS <= -45, QR IN I, RS IN II] ST DEVIATION AND MODERATE T-WAVE ABNORMALITY, CONSIDER ANTERIOR ISCHEMIA [-0.1+ mV T-WAVE IN V3/V4] Compared to ECG 10/03/2022 00:58:59 T-wave abnormality now present Possible ischemia now present Electronically Signed On 10-05-2022 0:03:40 PERSONAL COMPUTER NETWORK ENGINEER by Felicita Donaldson M.D. [email or web address]
[2022-10-03 07:16] LABS: LAB Peripheral Smear Sent for Review
[2022-10-03 07:34] LABS: Glucose Point of Care 254 mg/dL (70-110)
[2022-10-03] MEDS: insulin lispro 100 unit/1 mL SUBCUT ×4 (08:11→21:17)
--- NOTE | 2022-10-03 11:18 | PM.PN ---
Subjective Subjective: Seen and examined this morning. No new complaints. Currently on supplemental oxygen 2 L/min. Lower extremity Doppler showed bilateral nonocclusive DVT. Medications: Reviewed: Yes Vitals/I&O/Wt Last Vital Signs Temp 98 F 10/03/22 05:17 Pulse 76 10/03/22 10:00 Resp 27 H 10/03/22 10:00 BP 135/93 10/03/22 10:00 Pulse Ox 97 10/03/22 10:00 O2 Del Method 10/03/22 08:21 O2 Flow Rate 2 10/03/22 08:21 10/02/22 10/03/22 10/03/22 22:59 06:59 14:59 Intake Total 450 / 450 Balance 450 / 450 Weight last 48 hrs Weight 81.5 kg Weight 81.5 kg Weight 83.915 kg Physical Exam Narrative: General: No acute distress, AO x3 HEENT: PERRLA, pupils bilaterally equal and reactive, pallors not present Chest: Normal vesicular breath sounds, no added sounds, equal good air entry bilaterally CVS: S1-S2 regular, no murmurs, no tachycardia, no gallops, no rubs Abdomen: Soft, nontender, no organomegaly, bowel sounds present Neuro: No focal deficits, no facial deformity, AO x3, power 5/5 in all limbs Extremities: No clubbing no clubbing edema or cyanosis Data 10/02/22 22:56 10/02/22 22:56 A&P Assessment and plan (1) Pulmonary embolism: (2) BMI 27.0-27.9,adult: (3) Type 2 diabetes mellitus: Qualifiers: Diabetes mellitus rn long term care insulin use: without rn long term care use Diabetes mellitus complication status: without complication Qualified Code(s): E11.9 - Type 2 diabetes mellitus without complications (4) HTN (hypertension): Qualifiers: Hypertension type: primary hypertension Qualified Code(s): I10 - Essential (primary) hypertension (5) DVT (deep venous thrombosis): Plan #Dyspnea on exertion and rest secondary to bilateral pulmonary emboli, right heart strain negative, unprovoked #DVT #Hypertension #Type 2 diabetes mellitus #Left lung lobectomy 20 years ago. Details unknown possibly empyema per his description #Polycythemia, hemoglobin 17.7, hematocrit 53.9 Plan: Currently on Lovenox 1 mg/kg subcutaneous every 12 hours for PE and DVT. Lower extremity Doppler showing bilateral nonocclusive DVT. Pending echo to assess for right heart strain. ? Sliding scale insulin low-dose intensity her blood sugar control. ? Continue aspirin, lisinopril 20 daily ? Patient will likely require hypercoagulable work-up. Will refer to hematology at the time of discharge. Has a history of adverse skin reaction to Coumadin, will likely discharge on Eliquis. 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
[2022-10-03 11:59] LABS: Glucose Point of Care 260 mg/dL (70-110)
[2022-10-03 17:50] LABS: Glucose Point of Care 230 mg/dL (70-110)
[2022-10-03 21:18] LABS: Glucose Point of Care 216 mg/dL (70-110)
[2022-10-04] VITALS (22 sets, daily range): BP systolic 100–145; BP diastolic 57–76; PULSE 54–71; RESP 16–25; TEMP 36.6; O2SAT 92–99
[2022-10-04] MEDS: enoxaparin 80 mg/0.8 mL Syringe SUBCUT ×2 (00:38→12:27)
[2022-10-04 03:53] LABS: Basophils % 0.1 %; Eosinophils # 0.1 10^3/uL (0.0-0.8); Eosinophils % 0.9 %; Hematocrit 47.8 % (42.0-52.0); Hemoglobin 15.6 g/dL (11.7-16.6); Lymphocytes # 1.5 10^3/uL (0.8-4.8); Lymphocytes % 13.7 %; Mean Corpuscular HGB Conc 32.6 g/dL (30.0-36.0); Mean Corpuscular Hemoglobin 29.1 pg (28.0-34.0); Mean Corpuscular Volume 89.2 fl (80-94); Mean Platelet Volume 10.6 fL (7.4-10.4); Monocytes % 9.1 %; Neutrophils # 8.42 10^3/uL (1.8-7.7); Neutrophils % 75.7 %; Nucleated Red Blood Cells % 0 %; Platelet Count 181 10^3/cmm (130-400); Red Blood Count 5.36 10^6/uL (4.1-5.3); Red Cell Distribution Width 12.8 % (12.1-15.1); White Blood Count 11.1 10^3/uL (4.0-10.0)
[2022-10-04 04:22] LABS: Alanine Aminotransferase 18 U/L (0-41); Albumin Level 3.7 g/dL (3.5-5.2); Alkaline Phosphatase 77 U/L (40-130); Anion Gap 13.5 (5-19); Aspartate Amino Transferase 17 U/L (0-40); Blood Urea Nitrogen 29 mg/dL (8-23); Calcium 9.2 mg/dL (8.5-10.5); Carbon Dioxide 27 mmol/L (22-29); Chloride 102 mmol/L (98-107); Globulin 2.9 g/dL (1.3-4.6); Glucose 200 mg/dL (65-115); Osmolality Calculated 297 mOsm/kg (285-295); Potassium 4.5 mmol/L (3.5-5.1); Sodium 138 mmol/L (136-145); Total Bilirubin 0.7 mg/dL (0.15-1.2); Total Protein 6.6 g/dL (6.6-8.7)
[2022-10-04] MEDS: aspirin 81 mg EC Tablet PO (08:09)
[2022-10-04] MEDS: lisinopril 20 mg Tablet PO (08:09)
[2022-10-04] MEDS: insulin lispro 100 unit/1 mL SUBCUT ×2 (08:09→12:27)
[2022-10-04 08:10] LABS: Glucose Point of Care 174 mg/dL (70-110)
--- NOTE | 2022-10-04 09:34 | USCV_ITS ---
Alexander Ferrell Age: 77 Gender: M : 1945 Exam Date: 10/04/2022 10:49 Ordering Phys: Patti Wilson MD Technologist: Darek Moreno [place] [facility] [place]: lt leg blue and cool Risk Factors: Previous Vascular Surgery: RIGHT LEFT BP: 130.0 / 75.00 BP: 130.0/ 75.00 0 0 Waveform Velocity (cm/s) Velocity (cm/s) Waveform Biphasic 70.7 Iliac Prox 74.3 Biphasic Biphasic 74.6 Iliac Mid 145.7 Biphasic Biphasic Iliac Distal Biphasic 75.4 147.5 Biphasic 71.5 MIDDLE SCHOOL DIRECTOR 151.1 Biphasic Biphasic 122.3 SFA Prox 170.9 Monophasic Biphasic 130.1 SFA Mid 151.1 Biphasic Biphasic 115.7 SFA Dist 138.5 Biphasic Biphasic 60.7 POP 66.0 Biphasic Biphasic 55.5 VIDEO PRODUCTION ASSISTANT 63.7 Biphasic Biphasic 53.0 DPA 60.6 Biphasic 1.1 SOCRATES 1.1 FINDINGS Resting SOCRATES 1.1 bilaterally Mild to moderate diffuse plaques in the femoral and iliac arteries bilaterally. CONCLUSIONS Normal resting ABIs bilaterally Mild to moderate diffuse plaques in the iliac and femoral arteries bilaterally. No significant stenosis, based on the above findings Dr Felicita Donaldson MD [facility] (Electronically Signed) Final Date: 04 October 2022 17:50 S
[2022-10-04 11:44] LABS: Glucose Point of Care 272 mg/dL (70-110)
--- NOTE | 2022-10-04 13:58 | PM.DCS ---
Discharge Providers Date of Admission: 10/03/22 02:03 Date of Discharge: October 04, 2022 Attending Provider at Admission: Myesha Guzman MD Attending Provider at Discharge: Patti Wilson MD Primary Care Provider: Neeru Hickey NP Diagnoses at Discharge Discharge Diagnosis (1) Pulmonary embolism: Status: Acute (2) BMI 27.0-27.9,adult: Status: Acute (3) Type 2 diabetes mellitus: Status: Acute Qualifiers: Diabetes mellitus senior living insulin use: without intermodal dispatcher use Diabetes mellitus complication status: without complication Qualified Code(s): E11.9 - Type 2 diabetes mellitus without complications (4) HTN (hypertension): Status: Acute Qualifiers: Hypertension type: primary hypertension Qualified Code(s): I10 - Essential (primary) hypertension (5) DVT (deep venous thrombosis): Status: Acute Reason for Visit Reason for Visit: SOB Brief History: 77 year old male with past medical history of hypertension, type 2 diabetes mellitus, 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 Upon evaluation he was found to have bilateral pulmonary emboli for which she was started on anticoagulation with Lovenox 1 mg/kg subcutaneously every 12 hours. He was additionally found to have lower extremity DVT bilaterally nonocclusive. Unclear if this is residual from his previously known DVT or a new phenomenon. Because of the adverse reaction to warfarin in the past, anticoagulation has been initiated with Eliquis at discharge. He is instructed to start Eliquis 10 mg twice daily for the first 7 days and then drop the dose to 5 mg twice a day for at least 3 months. 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 Outpatient referral has been provided to heme-onc clinic. Echocardiogram was performed to evaluate for right heart strain. While the study was negative for at this, it did reveal a somewhat dyskinetic basal inferior wall segment with grade 1 diastolic dysfunction and normal to mildly elevated filling pressures. He has no clinical signs of heart failure at this time. Findings may be consistent with old KS/coronary artery disease and patient should get a stress test as outpatient. However now would not be a good time to proceed with the study as he has bilateral PE. His troponins were mildly elevated at 25 at baseline, with negative delta at 2 and 6-hour. No acute ST-T wave changes on EKG. No clinical suspicion for NSTEMI at this time. There was audible wheezing on auscultation bilaterally. He suspects that he may have COPD and may have been diagnosed with it in the past, however does not take any inhalers for the same. He will be discharged today with inhalers. He is not a known smoker. Recommended to undergo PFT after follow-up with his primary care provider. Physical Exam Narrative: General: No acute distress, AO x3 HEENT: PERRLA, pupils bilaterally equal and reactive, pallors not present Chest: Scattered wheezing to auscultation B/L CVS: S1-S2 regular, no murmurs, no tachycardia, no gallops, no rubs Abdomen: Soft, nontender, no organomegaly, bowel sounds present Neuro: No focal deficits, no facial deformity, AO x3, power 5/5 in all limbs Discharge Data Studies Completed and Pending Completed Studies During Hospitalization Category Date Time Status CTA chest [CT angio chest PE protcl [id number]] Stat Cat Scan 10/02/22 23:40 Completed XR chest 1V portable [id number] Stat Exams 10/02/22 23:04 [place] [id number] Routine Ultrasound 10/03/22 04:16 Completed CV. echo complete* [id number] Urgent Ultrasound 10/03/22 04:10 Completed Pending at discharge Category Date Time Status Erythropoietin Routine Lab 10/03/22 04:09 [place] [id number] Urgent Ultrasound 10/04/22 09:34 Taken Radiology Impressions Chest X-Ray 10/02/22 23:04 IMPRESSION: 1. Left diaphragmatic eventration with left lower lobe atelectasis versus minimal infiltrate. 2. Right mid lung field chronic interstitial fibrotic changes. Chest CTA 10/02/22 23:40 IMPRESSION: 1. Multiple bilateral pulmonary emboli, negative for right heart strain with an RV to LV ratio of 9.3. 2. Cardiomegaly. 3. Coronary artery atherosclerotic calcifications. 4. Trace bilateral pleural effusions. 5. Cholecystectomy. 6. Bilateral dependent atelectasis versus infiltrate. 7. 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 ADDENDUM: 10/03/22 0036 THIS REPORT CONTAINS FINDINGS THAT MAY BE CRITICAL TO PATIENT CARE. The findings were verbally communicated via telephone conference with WESLY FRANKLIN at 12:35 AM WARRANT SERVER on 10/03/2022. The findings were acknowledged and understood. Venous Duplex 10/03/22 04:16 IMPRESSION: Nonocclusive thrombosis of the left common femoral vein, and occlusive thrombosis of the left proximal femoral and proximal profunda femoral veins. ADDENDUM: 10/03/22 0646 THIS REPORT CONTAINS FINDINGS THAT MAY BE CRITICAL TO PATIENT CARE. The findings were verbally communicated via telephone conference with Myesha Guzman at 6:45 AM WARRANT SERVER on 10/03/2022. The findings were acknowledged and understood. Laboratory Results WBC 11.1 10^3/uL (4.0-10.0) H 10/04/22 03:08 RBC 5.36 10^6/uL (4.1-5.3) H 10/04/22 03:08 Hgb 15.6 g/dL (11.7-16.6) 10/04/22 03:08 Hct 47.8 % (42.0-52.0) 10/04/22 03:08 MCV 89.2 fl (80-94) 10/04/22 03:08 MCH 29.1 pg (28.0-34.0) 10/04/22 03:08 MCHC 32.6 g/dL (30.0-36.0) 10/04/22 03:08 RDW 12.8 % (12.1-15.1) 10/04/22 03:08 Plt Count 181 10^3/cmm (130-400) 10/04/22 03:08 MPV 10.6 fL (7.4-10.4) H 10/04/22 03:08 Neut % (Auto) 75.7 % 10/04/22 03:08 Lymph % (Auto) 13.7 % 10/04/22 03:08 Bracken % (Auto) 9.1 % 10/04/22 03:08 Eos % (Auto) 0.9 % 10/04/22 03:08 Baso % (Auto) 0.1 % 10/04/22 03:08 Neut # (Auto) 8.42 10^3/uL (1.8-7.7) H 10/04/22 03:08 Lymph # (Auto) 1.5 10^3/uL (0.8-4.8) 10/04/22 03:08 Bracken # (Auto) 1.0 10^3/uL (0.2-0.9) H 10/04/22 03:08 Eos # (Auto) 0.1 10^3/uL (0.0-0.8) 10/04/22 03:08 Baso # (Auto) 0.0 10^3/uL (0.0-0.1) 10/04/22 03:08 Nucleated RBC % (auto) 0 % 10/04/22 03:08 Nucleated RBCs # 0.0 /100WBC 10/04/22 03:08 PT 14.60 SECONDS (12.1-14.9) 10/02/22 22:56 INR 1.11 (0.8-1.2) 10/02/22 22:56 Specimen Type Arterial 10/02/22 23:12 Sample Site Radial, right 10/02/22 23:12 ABG pH 7.45 (7.35-7.45) 10/02/22 23:12 ABG pCO2 34.3 mmHg (35-45) L 10/02/22 23:12 ABG pO2 54.6 mmHg (80.0-100.0) L 10/02/22 23:12 ABG HCO3 23.5 mmol/L (22-26) 10/02/22 23:12 ABG Base Excess 0.1 mmol/L (-2.0-2.0) 10/02/22 23:12 David Test Pos 10/02/22 23:12 Hematocrit 51.3 % (42-52) 10/02/22 23:12 Hgb O2 Saturation 89.1 % (95-100) L 10/02/22 23:12 Carboxyhemoglobin 1.3 %THgb (0.4-20.1) 10/02/22 23:12 Methemoglobin 0.6 % (0.4-1.5) 10/02/22 23:12 Total Hemoglobin 16.8 g/dL (14-18) 10/02/22 23:12 O2 Delivery Device None 10/02/22 23:12 FiO2 21.0 % 10/02/22 23:12 Eyeglass Frames Inspector ID Hannah 10/02/22 23:12 Sodium 138 mmol/L (136-145) 10/04/22 03:08 Potassium 4.5 mmol/L (3.5-5.1) 10/04/22 03:08 Chloride 102 mmol/L (98-107) 10/04/22 03:08 Carbon Dioxide 27 mmol/L (22-29) 10/04/22 03:08 Anion Gap 13.5 (5-19) 10/04/22 03:08 BUN 29 mg/dL (8-23) H 10/04/22 03:08 Creatinine 0.8 mg/dL (0.7-1.2) 10/04/22 03:08 GFR Calculation Not Reportable 10/04/22 03:08 Glucose 200 mg/dL (65-115) H 10/04/22 03:08 POC Glucose 272 mg/dL (70-110) H 10/04/22 11:11 Calculated Osmolality 297 mOsm/kg (285-295) H 10/04/22 03:08 Calcium 9.2 mg/dL (8.5-10.5) 10/04/22 03:08 Total Bilirubin 0.7 mg/dL (0.15-1.2) 10/04/22 03:08 AST 17 U/L (0-40) 10/04/22 03:08 ALT 18 U/L (0-41) 10/04/22 03:08 Alkaline Phosphatase 77 U/L (40-130) 10/04/22 03:08 Troponin T Baseline 25 ng/L (0-15) H 10/02/22 22:56 Troponin T 120 Minute 23.09 ng/L (0-15) H 10/03/22 00:55 Delta Troponin T -1.91 ABS# (0-10) L 10/03/22 00:55 Troponin T Hi Sens 6Hr 15.62 ng/L (0-15) H 10/03/22 05:00 Troponin T Hi Sens 6Hr Delta -9.38 ng/L (0-12) L 10/03/22 05:00 NT-Pro-B Natriuret Pep 1157 pg/mL (0-450) H 10/02/22 22:56 Total Protein 6.6 g/dL (6.6-8.7) 10/04/22 03:08 Albumin 3.7 g/dL (3.5-5.2) 10/04/22 03:08 Globulin 2.9 g/dL (1.3-4.6) 10/04/22 03:08 Influenza Type A Ag negative (Negative) 10/02/22 23:11 Influenza Type B Ag negative (Negative) 10/02/22 23:11 Vitals Last Vital Signs Temp 97.8 F 10/04/22 12:00 Pulse 70 10/04/22 12:00 Resp 16 10/04/22 12:00 BP 145/76 10/04/22 12:00 Pulse Ox 93 10/04/22 12:00 O2 Del Method 10/04/22 12:00 O2 Flow Rate 2 10/03/22 11:32 Discharge Plan Discharge Patient Disposition: Home Condition: Stable Prescriptions: New Eliquis 5 mg tablet See Rx Instructions .ROUTE .COMPLEX 90 Days Qty: 180 0RF Rx Instructions: take 10mg BID twice daily for 7 days, then reduce dose to 5mg BID for 3 months Spiriva Respimat 1.25 mcg/actuation mist 2 puff inhalation DAILY Qty: 4 1RF fluticasone propion-salmeterol [Advair Diskus] 500-50 mcg/dose blister with device 1 inh inhalation BID 30 Days Qty: 60 1RF Continued aspirin [Adult Aspirin Regimen] 81 mg tablet,delayed release (DR/EC) 81 mg PO DAILY lisinopril 20 mg tablet 20 mg PO DAILY glimepiride 2 mg tablet 2 mg PO BID Janumet 50-1,000 mg tablet 1 tab PO BID Discharge Orders: Discharge Order (Routine); Ordered 10/04/22 Ordered By: Patti Wilson Referrals: Guerrero Desai MD [Hospitalist] - 1 month Neeru Hickey NP [Primary Care Provider] - 1 week Discharge Diet: Usual diet Discharge Activity: Resume usual activity Patient Instructions: Opioid Safety Discharge Attestations Time Spent in Discharge Care*: greater than 30 min Quality Metrics Clinical Quality Measures [ Venous Thromboembolism { Contraindication to Overlap Therapy: None; Overlap threrpy ordered; VTE Discharge Education: Education about anticoagulant therapy/Care Notes given; Deep Vein Thrombosis/Pulmonary Embolism Present on Admission: Yes;}] Coding Level of Care Code Acute [facility] note Diagnoses Pulmonary embolism I26.99 BMI 27.0-27.9,adult Z68.27 Type 2 diabetes mellitus E11.9 Diabetes mellitus intermodal dispatcher insulin use: without intermodal dispatcher use Diabetes mellitus complication status: without complication HTN (hypertension) I10 Hypertension type: primary hypertension DVT (deep venous thrombosis) I82.409
[2022-10-04] MEDS: ipratropium-albuterol 3 mL Neb INHALATION (14:42)
[2022-10-05 17:39] LABS: Erythropoietin 15.1 mIU/mL (2.6-18.5)
== END 2022-10-04 15:44 | disposition home or self-care (01) | DRG 176 ==
LOC: ER 10-03 02:02 → ICU 10-03 02:04 → MEDSURG 10-04 09:39
PROVIDERS: Admitting Provider Internal Medicine; Emergency Provider Emergency Medicine; PCP Nurse Practitioner Family; Visit Provider Student in an Organized Health Care Education/Training Program
DX: I26.99 Other pulmonary embolism without acute cor pulmonale (principal); I82.412 Acute embolism and thrombosis of left femoral vein; I10 Essential (primary) hypertension; E11.9 Type 2 diabetes mellitus without complications; Z90.2 Acquired absence of lung [part of]; Z86.718 Personal history of other venous thrombosis and embolism; I25.10 Atherosclerotic heart disease of native coronary artery without angina pectoris; D18.09 Hemangioma of other sites; Z80.1 Family history of malignant neoplasm of trachea, bronchus and lung; D75.1 Secondary polycythemia; I25.2 Old myocardial infarction; J44.9 Chronic obstructive pulmonary disease, unspecified; Z79.82 Long term (current) use of aspirin; Z79.84 Long term (current) use of oral hypoglycemic drugs; Z88.8 Allergy status to other drugs, medicaments and biological substances
CPT/HCPCS: 36415; 36416; 36600; 71045; 71275; 80053; 80503; 82668; 82805; 82962; 83880; 84484; 85025; 85610; 87400; 87804; 93005; 93306; 93925; 93970; 94640; 94664; 94760; 96372; 96374; 96375; 96376; 97161; 97165; 99285; J1200; J1650; J1815; J2920; J2930; Q9967

== ENCOUNTER → 2022-10-05 09:56 | Outpatient (BNVA) | payer MEDICARE, SELFPAY | PROVIDERS: PCP Nurse Practitioner Family; Visit Provider Internal Medicine Cardiovascular Disease | DX: I26.99 Other pulmonary embolism without acute cor pulmonale (principal); R93.1 Abnormal findings on diagnostic imaging of heart and coronary circulation; I10 Essential (primary) hypertension; J44.9 Chronic obstructive pulmonary disease, unspecified; Z79.01 Long term (current) use of anticoagulants | CPT/HCPCS: 99204 ==

== ENCOUNTER → 2022-10-12 11:32 | Outpatient (BNVA) | payer MEDICARE, SELFPAY | PROVIDERS: PCP Nurse Practitioner Family; Visit Provider Nurse Practitioner Family | DX: Z09 Encounter for follow-up examination after completed treatment for conditions other than malignant neoplasm (principal); E11.9 Type 2 diabetes mellitus without complications | CPT/HCPCS: 83036 ==

== ENCOUNTER 2022-10-26 10:44 | Oncology outpatient (recurring) (ONCR) | payer MEDICARE, SELFPAY | END 2022-11-06 23:59 | disposition home or self-care (01) | LOC: ONCMED 10:45 | PROVIDERS: PCP Nurse Practitioner Family; Visit Provider Internal Medicine Medical Oncology | DX: I26.99 Other pulmonary embolism without acute cor pulmonale (principal); I82.402 Acute embolism and thrombosis of unspecified deep veins of left lower extremity; Z79.01 Long term (current) use of anticoagulants; Z79.82 Long term (current) use of aspirin; R71.8 Other abnormality of red blood cells | CPT/HCPCS: 99205 ==

== ENCOUNTER 2022-11-12 08:36 | Outpatient (CLI) | payer MEDICARE, SELFPAY ==
[2022-11-12 08:55] VITALS: BMI 25.8
--- NOTE | 2022-11-12 08:57 | ECG_ITS ---
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 Interpretive Statements NAME OF STUDY: LEXISCAN SESTAMIBI STRESS TEST INDICATION: Chest Pain, Central; History of CAD PROCEDURE: At the baseline, the blood pressure was 116/79 mm Hg with a heart rate of 65 bpm. The electrocardiogram showed sinus rhythm, left axis deviation. Poor anterior R wave progression. ??? The Lexiscan was infused over a period of 20 seconds. A total of 0.4 milligrams of Lexiscan was infused. The stress phase was continued for a total of 5 minutes. Heart rate at the end of the stress phase was 89 bpm with a blood pressure of 139/87 mm Hg. The EKG at the peak infusion revealed sinus rhythm with no significant ST-T wave changes. The study was terminated due to protocol completion. ??? Sestamibi was injected 20 seconds after the Lexiscan infusion. ??? Blood pressure at the end of the recovery phase was 136/84 mm Hg with a heart rate of 85 beats per minute. ??? CONCLUSION: 1. No significant EKG changes with the LexiScan infusion. 2. No LexiScan induced chest pain or cardiac arrhythmia. 3. Normal blood pressure and heart rate response. 4. Sestamibi/sestamibi perfusion scan pending; see separate report. Electronically Signed On 11-13-2022 22:05:27 TECHNICIAN SEMICONDUCTOR DEVELOPMENT by Chanel Hurtado M.D. [id number]
--- NOTE | 2022-11-12 08:57 | NMCV_ITS ---
NM jessica perf SPECT r/s* [id number] Alexander Ferrell Age: 77 Gender: M : 1945 Exam Date: 11/12/2022 09:40 Ordering Phys: Chanel Hurtado MD ([email or web address]) Technologist: NILESH Westbrook Exam Location: [facility] Indications: CHEST PAIN STRESS TEST Please see separate stress test report in [facility] for full findings IMAGE PROTOCOL Rest/Stress 1 Lexiscan Day Radiopharmaceutical Dose (mCi) Administration Site Administered by Rest: Tc-99m 10.9 IV NILESH Godwin Sestamibi Stress:Tc-99m 32.5 IV NILESH Godwin Sestamibi Rest: 12-Nov-2022 60 Discovery 630 Stress: 12-Nov-2022 30 Discovery 630 0.4mg Lexiscan. Supine position only as patient was unable to lay prone. SPECT RESULTS Technical Quality: Excellent Raw Data Analysis: Normal Image Corrections: No attenuation or motion correction applied Summed Stress Score: 3 Summed Rest Score: 8 Summed Difference Score: 0 PERFUSION FINDINGS Small sized perfusion abnormality of moderate severity of apical inferior, mid inferolateral and apical lateral palacios on rest images with improved tracer uptake on stress images. This is suggestive of attenuation artifact. FUNCTIONAL RESULTS (calculated via Gated SPECT) Stress Image LV EF (%): 75 Stress EDV (mL):67 TID: 0.93 Stress ESV (mL):17 FUNCTIONAL FINDINGS: The left ventricle is normal in size. Transient Ischemia Dilatation of 0.93. The left ventricular ejection fraction is normal with a value of 75%. There is normal left ventricular wall thickening. Normal end diastolic and end systolic volumes. IMPRESSIONS 1. Myocardial perfusion imaging is normal. Attenuation artifact in inferolateral and apical palacios. 2. Overall left ventricular systolic function is normal without regional wall motion abnormalities, LVEF=75%. 3. EKG portion of the study will be reported separately. 4. Scan indicates low risk for cardiac events. Chanel Hurtado MD (Electronically Signed) Final Date: 16 November 2022 17:42 S
[2022-11-12] MEDS: regadenoson 0.4 Mg/5 ml Syringe IVP (10:44)
[2022-11-12 10:59] VITALS: BP 136/84; PULSE 86
== END 2022-11-12 08:37 | disposition home or self-care (01) ==
PROVIDERS: PCP Nurse Practitioner Family; Visit Provider Internal Medicine Cardiovascular Disease
DX: R07.9 Chest pain, unspecified (principal)
CPT/HCPCS: 36415; 78452; 93017; 96374; A9500; J2785

== ENCOUNTER 2023-07-27 16:11 | Emergency (ER) | payer OTHER, SELFPAY ==
[2023-07-27] VITALS (15 sets, daily range): BP systolic 137–189; BP diastolic 79–111; PULSE 71–82; RESP 0–24; TEMP 36.5; O2SAT 93–98; BMI 31.5
--- NOTE | 2023-07-27 16:23 | ECG_ITS ---
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 Measurements Intervals [place] Rate: 73 P: 50 MT: 187 QRS: -71 QRSD: 123 T: 28 QT: 373 QTc: 413 Interpretive Statements SINUS RHYTHM LEFT ANTERIOR FASCICULAR BLOCK [QRS AXIS <= -45, QR IN I, RS IN II] Nonspecific T wave change INTERPRETATION BASED ON A DEFAULT AGE OF 40 YEARS Compared to ECG 10/03/2022 06:30:51 Possible ischemia no longer present Electronically Signed On 07-28-2023 8:00:46 CDT by Felicita Donaldson M.D. [id number]
--- NOTE | 2023-07-27 16:23 | XRR_ITS ---
PROCEDURE INFORMATION: Exam: XR Chest Exam date and time: 07/27/2023 4:28 PM Age: 77 years old Clinical indication: Pain; Angina pectoris; Prior surgery; Surgery date: 6+ months; Surgery type: Partial left lung removal; Additional info: Chest pain TECHNIQUE: Imaging protocol: Radiologic exam of the chest. Views: 1 view. COMPARISON: CR XR chest 1V portable [id number] 10/03/2022 12:14 AM FINDINGS: Lungs: there is basilar atelectasis again noted. Calcified granulomas are noted. There is eventration of the left hemidiaphragm. Pleural spaces: Unremarkable. No pleural effusion. No pneumothorax. Heart/Mediastinum: Unremarkable. No cardiomegaly. Bones/joints: The bones are osteopenic. XR/XR chest 1V portable [id number] IMPRESSION: No significant change from the prior study.
[2023-07-27] MEDS: aspirin 81 mg Chew Tablet 324 MG PO (16:41)
--- NOTE | 2023-07-27 16:44 | ED_ITS ---
HPI - Chest Pain General: Chief Complaint: Chest Pain Stated Complaint: chest pain Time Seen by Provider: 07/27/23 16:18 History of Present Illness: 77-year-old male presents the emergency department along with his . He had 2 episodes of sharp chest pain in the left chest today. Each 1 lasted less than 30 seconds. It did kind of hurt to breathe or move during that time. In between episodes he has had no symptoms. No associated shortness of breath, diaphoresis, nausea, lightheadedness. No known history of coronary artery disease. He does have a known history of polycythemia and DVTs in the remote past. He had a pulmonary embolism at the end of . He has been on Eliquis ever since. He has been compliant with it. He denies any hemoptysis, lower extremity pain or swelling. Currently he reports no symptoms. Associated symptoms: Deny abdominal pain, dyspnea, fever(s), nausea, syncope or vomiting Review of Systems General: Reports: 10 or more systems reviewed and unremarkable except in HPI and below Const: Denies: fever(s), chills or body aches Eyes: Denies: change in vision ENMT: Denies: throat pain Card: Denies: edema or syncope Resp: Denies: dyspnea or productive cough GI: Denies: abdominal pain, nausea, vomiting or diarrhea : Denies: flank pain, dysuria or urinary frequency Musc: Denies: neck pain, extremity pain or extremity swelling Skin/Breast: Denies: rash or erythema Neuro: Denies: headache(s), numbness in extremities, weakness in extremities, lack of coordination or difficulty walking [facility] ED PFSH: Medical History BMI 27.0-27.9,adult COPD (chronic obstructive pulmonary disease) Degenerative arthritis 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 HTN (hypertension) Type 2 diabetes mellitus Surgical History History of cholecystectomy S/P lobectomy of lung Family History Mother Diabetes CAD (coronary artery disease) Hypertension Social History Smoking and tobacco status: never smoked Physical Exam Const: COMMON NORMALS: no limitations, alert and well nourished EXAM LIMITATIONS: no altered mental status HENMT: COMMON NORMALS: normocephalic, atraumatic and external ears normal HEAD & SCALP: normocephalic and atraumatic EXTERNAL EAR: Yes external ears normal MOUTH: no muffled voice Eye: COMMON NORMALS: EOMs intact bilaterally, conjunctivae normal and no scleral icterus CONJUNCTIVA: Yes conjunctivae normal Neck/C-Spine: COMMON NORMALS: no JVD GENERAL: Yes normal visual inspection and Yes trachea midline Resp: COMMON NORMALS: normal respiratory effort, No use of accessory muscles and clear to auscultation bilaterally AUSCULTATION: clear to auscultation bilaterally Cardio: COMMON NORMALS: no JVD, regular rate and regular rhythm RATE: regular rate RHYTHM: regular rhythm GI: COMMON NORMALS: Soft to palpation and non-tender PALPATION: Yes Soft to palpation and No Guarding due to palpation present (GI) Extremity: COMMON NORMALS: normal to inspection Neuro: COMMON NORMALS: moves all extremities, no focal motor deficits and no sensory deficits noted SENSORIUM/ORIENTATION: Yes alert SPEECH: speech normal Psych: COMMON NORMALS: mental status grossly normal, Normal thought process present, cooperative, normal affect and speech normal SPEECH: Yes normal speech THOUGHT PROCESS: Normal thought process present Skin: COMMON NORMALS: no rashes or lesions noted, turgor normal and no ja undice GENERAL SKIN EXAM: no rashes or lesions noted and turgor normal Course Vital Signs: Vital signs: Vital Signs Temperature 97.7 F 07/27/23 16:18 Pulse Rate 77 07/27/23 17:50 Respiratory Rate 14 07/27/23 17:50 Blood Pressure 148/99 07/27/23 17:50 Pulse Oximetry 95 07/27/23 17:50 Oxygen Delivery Me thod Room Air 07/27/23 17:00 MDM - Chest Pain Medical Decision Making EKG obtained at 1616. On my independent interpretation, patient has a sinus rhythm at a rate of 73, left axis deviation suspected, QRS 123, incomplete right bundle branch block and left fascicular block suspected, no J-point elevations, no concerning ST segment elevations or depressions. No ectopy. Sharp, brief, pleuritic sounding atypical chest pain. Low suspicion for ACS. He does have a history of PE and this certainly puts him at risk for further PEs but also puts him at risk for pleurisy. He has a normal heart rate and normal oxygenation with normal work of breathing. He has no current chest discomfort and no hemoptysis or any other changes. CTA of the chest is not indicated today, as it would not change any management. Patient continues on Eliquis. There is a possibility this could be GI in etiology, pne umothorax, esophageal spasm, and other causes as well. We will obtain troponin, chest x-ray, CMP, CBC. Chest x-ray on my independent interpretation shows elevated left hemidiaphragm with large gastric bubble. Some atelectasis in the left lung base. I do not see any definitive pneumothorax or effusion. Mediastinum is not widened. Probable mild emphysematous changes. Troponin baseline is 10. Metabolic alkalosis probably secondary to chronic metabolic acidosis. Elevated hemoglobin, recurrent. No other significant laboratory findings. Patient has remained asymptomatic. Blood pressure down to 124/81, heart rate 73, 95% on room air. Atypical chest pain. Low suspicion for ACS Feel patient can follow-up as an outpatient. Lab Data 07/27/23 16:27 07/27/23 16:27 Laboratory Results WBC 5.77 10^3/uL (3.29-11.43) 07/27/23 16: RBC 5.71 10^6/uL (3.85-5.65) H 07/27/23 16:27 Hgb 17.20 g/dL (11.27-16.99) H 07/27/23 16:27 Hct 51.3 % (37-53) 07/27/23 16: MCV 89.8 fl (82-101) 07/27/23 16:27 MCH 30.1 pg (27-33) 07/27/23 16: MCHC 33.5 g/dL (30-55) 07/27/23 16: RDW 13.1 % (12.1-15.1) 07/27/23 16:27 Plt Count 185 10^3/cmm (157-399) 07/27/23 16: MPV 10.0 fL (7.4-10.4) 07/27/23 16: Neut % (Auto) 58.3 % 07/27/23 16:27 Lymph % (Auto) 28.9 % 07/27/23 16:27 [place] % (Auto) 9.4 % 07/27/23 16:27 Eos % (Auto) 2.6 % 07/27/23 16:27 Baso % (Auto) 0.3 % 07/27/23 16:27 Neut # (Auto) 3.36 10^3/uL (1.8-7.7) 07/27/23 16: Lymph # (Auto) 1.7 10^3/uL (0.8-4.8) 07/27/23 16: [place] # (Auto) 0.5 10^3/uL (0.2-0.9) 07/27/23 16: Eos # (Auto) 0.2 10^3/uL (0.0-0.8) 07/27/23 16: Baso # (Auto) 0.0 10^3/uL (0.0-0.1) 07/27/23 16: Nucleated RBC % (auto) 0 % 07/27/23 16: Nucleated RBCs # 0.0 /100WBC 07/27/23 16:27 Sodium 140 mmol/L (136-145) 07/27/23 16:27 Potassium 4.4 mmol/L (3.5-5.1) 07/27/23 16:27 Chloride 100 mmol/L (98-107) 07/27/23 16:27 Carbon Dioxide 30 mmol/L (22-29) H 07/27/23 16:27 Anion Gap 14.4 (5-19) 07/27/23 16:27 BUN 18 mg/dL (8-23) 07/27/23 16:27 Creatinine 0.9 mg/dL (0.7-1.2) 07/27/23 16:27 GFR Calculation Not Reportable 07/27/23 16:27 Glucose 100 mg/dL (65-115) 07/27/23 16: Calculated Osmolality 292 mOsm/kg (285-295) 07/27/23 16:27 Calcium 9.5 mg/dL (8.5-10.5) 07/27/23 16:27 Total Bilirubin 1.1 mg/dL (0.15-1.2) 07/27/23 16:27 AST 35 U/L (0-40) 07/27/23 16:27 ALT 39 U/L (0-41) 07/27/23 16:27 Alkaline Phosphatase 76 U/L (40-130) 07/27/23 16:27 Troponin T Baseline 10 ng/L (0-15) 07/27/23 16:27 NT-Pro-B Natriuret Pep 136 pg/mL (0-450) 07/27/23 16:27 Total Protein 7.5 g/dL (6.6-8.7) 07/27/23 16:27 Albumin 4.4 g/dL (3.5-5.2) 07/27/23 16:27 Globulin 3.1 g/dL (1.3-4.6) 07/27/23 16:27 XR interpretation done by ED provider, pending radiology final review ED provider radiology interpretation(s): See MDM Discharge Plan Discharge Patient Disposition: Home Clinical Impression: Chest pain Prescriptions: No Action aspirin [Adult Aspirin Regimen] 81 mg tablet,delayed release (DR/EC) 81 mg PO DAILY Eliquis 5 mg tablet 5 mg PO BID Qty: 180 3RF Advair Diskus 500-50 mcg/dose blister with device 1 inh inhalation BID 30 Days Qty: 60 1RF Janumet 50-1,000 mg tablet 1 tab PO BID Qty: 180 3RF Spiriva Respimat 1.25 mcg/actuation mist 2 puff inhalation DAILY Qty: 4 1RF lisinopril 20 mg tablet See Rx Instructions .ROUTE .COMPLEX Qty: 90 1RF Dose Instruction: TAKE ONE TABLET BY MOUTH ONCE DAILY Rx Instructions: TAKE ONE TABLET BY MOUTH ONCE DAILY albuterol sulfate 90 mcg/actuation HFA aerosol inhaler 2 puff inhalation Q4H PRN (Reason: shortness of breath or wheezing) Qty: 8.5 2RF glimepiride 2 mg tablet See Rx Instructions .ROUTE .COMPLEX Qty: 180 0RF Dose Instruction: TAKE ONE TABLET BY MOUTH TWICE DAILY Rx Instructions: TAKE ONE TABLET BY MOUTH TWICE DAILY Discharge Orders: Discharge ED (Routine); Ordered 07/27/23 Ordered By: Robin Núñez Referrals: Neeru Hickey, GLASS CYLINDER FLANGER [Primary Care Provider] - 4-7 days (F/u ER visit atypical chest pain ) Patient Instructions: Chest Pain (ED), Opioid Safety, Pain Management Activity Restrictions/Additional Instructions: Today you have been diagnosed with acute chest pain, atypical for angina. Additional information has been provided as handouts, please take the time to read and understand this information. It is very important that you follow up with a Doctor as discussed during your visit today, the information to contact your doctor is included in your discharge instructions. Failure to adhere to your follow up instructions may lead to severe disability, injury, or so please make sure to keep your appointments. Please return to the Emergency Department immediately and without fail if you experience any new, worsening, or concerning problems such as:recurrent or worsening chest pain, shortness of breath, headache or body pain, fever, li ghtheadedness, weakness, numbness, or any other concerning symptoms. If taking a substance like an opiate or other strong pain medication, please do not drive or operate heavy machinery while under the effects of this medicine. Thank you for allowing us to participate in your care today. Coding Level of Care Code ED Flow Coordinator for Deann Morton
[2023-07-27 16:45] LABS: Basophils % 0.3 %; Eosinophils # 0.2 10^3/uL (0.0-0.8); Eosinophils % 2.6 %; Hematocrit 51.3 % (37-53); Lymphocytes # 1.7 10^3/uL (0.8-4.8); Lymphocytes % 28.9 %; Mean Corpuscular HGB Conc 33.5 g/dL (30-55); Mean Corpuscular Hemoglobin 30.1 pg (27-33); Mean Corpuscular Volume 89.8 fl (82-101); Monocytes # 0.5 10^3/uL (0.2-0.9); Monocytes % 9.4 %; Neutrophils # 3.36 10^3/uL (1.8-7.7); Neutrophils % 58.3 %; Nucleated Red Blood Cells % 0 %; Platelet Count 185 10^3/cmm (157-399); Red Blood Count 5.71 10^6/uL (3.85-5.65); Red Cell Distribution Width 13.1 % (12.1-15.1); White Blood Count 5.77 10^3/uL (3.29-11.43)
[2023-07-27 16:55] LABS: Troponin(5th) Baseline 10 ng/L (0-15)
[2023-07-27 17:04] LABS: Alanine Aminotransferase 39 U/L (0-41); Albumin Level 4.4 g/dL (3.5-5.2); Alkaline Phosphatase 76 U/L (40-130); Anion Gap 14.4 (5-19); Aspartate Amino Transferase 35 U/L (0-40); Blood Urea Nitrogen 18 mg/dL (8-23); Calcium 9.5 mg/dL (8.5-10.5); Carbon Dioxide 30 mmol/L (22-29); Chloride 100 mmol/L (98-107); Globulin 3.1 g/dL (1.3-4.6); Glucose 100 mg/dL (65-115); NT Pro B Type Natriuretic Pept 136 pg/mL (0-450); Osmolality Calculated 292 mOsm/kg (285-295); Potassium 4.4 mmol/L (3.5-5.1); Sodium 140 mmol/L (136-145); Total Bilirubin 1.1 mg/dL (0.15-1.2); Total Protein 7.5 g/dL (6.6-8.7)
--- NOTE | 2023-07-27 18:02 | ECG_ITS ---
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 Measurements Intervals [place] Rate: 74 P: 36 [place]: 160 QRS: -67 QRSD: 122 T: 0 QT: 422 QTc: 468 Interpretive Statements SINUS RHYTHM WITH OCCASIONAL VENTRICULAR PREMATURE COMPLEXES POSSIBLE RIGHT VENTRICULAR CONDUCTION DELAY [RSR (QR) IN V1/V2] LEFT ANTERIOR FASCICULAR BLOCK [QRS AXIS <= -45, QR IN I, RS IN II] NONSPECIFIC T-WAVE ABNORMALITY Compared to ECG 07/27/2023 16:16:40 Ventricular premature complex(es) now present T-wave abnormality now present Electronically Signed On 07-28-2023 8:07:23 CDT by Felicita Donaldson M.D. [id number]
== END 2023-07-27 18:43 | disposition home or self-care (01) ==
PROVIDERS: Emergency Provider Emergency Medicine; PCP Nurse Practitioner Family
DX: R07.9 Chest pain, unspecified (principal); Z79.82 Long term (current) use of aspirin; Z79.01 Long term (current) use of anticoagulants; Z79.84 Long term (current) use of oral hypoglycemic drugs; J44.9 Chronic obstructive pulmonary disease, unspecified; I10 Essential (primary) hypertension; E11.9 Type 2 diabetes mellitus without complications; Z90.2 Acquired absence of lung [part of]
CPT/HCPCS: 71045; 80053; 83880; 84484; 85025; 93005; 99285

== ENCOUNTER → 2023-12-27 15:37 | Outpatient (BNVA) | payer OTHER, SELFPAY | PROVIDERS: PCP Nurse Practitioner Family; Visit Provider Nurse Practitioner Family | DX: E11.9 Type 2 diabetes mellitus without complications (principal); R10.9 Unspecified abdominal pain; I10 Essential (primary) hypertension | CPT/HCPCS: 80053; 80061; 81000; 82043; 83036; 84443; 85025 ==

== ENCOUNTER 2024-07-13 15:33 | Emergency (ER) | payer MEDICARE, SELFPAY ==
[2024-07-13] VITALS (9 sets, daily range): BP systolic 120–140; BP diastolic 76–84; PULSE 83–110; RESP 16–24; TEMP 36.4; O2SAT 93–95
--- NOTE | 2024-07-13 15:34 | ECG_ITS ---
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 Measurements Intervals [place] Rate: 109 P: 42 [place]: 156 QRS: -90 QRSD: 137 T: 50 QT: 461 QTc: 622 Interpretive Statements SINUS TACHYCARDIA POSSIBLE LEFT ATRIAL ENLARGEMENT [-0.1mV P-WAVE IN V1/V2] RIGHT BUNDLE BRANCH BLOCK [120+ ms QRS DURATION, UPRIGHT V1, 40+ ms S IN I/aVL/V4/V5/V6] LEFT ANTERIOR FASCICULAR BLOCK [QRS AXIS <= -45, QR IN I, RS IN II] POSSIBLE ANTEROSEPTAL MYOCARDIAL INFARCTION , OF INDETERMINATE AGE [30 ms Q WAVE IN V1-V4] Compared to ECG 07/27/2023 18:02:14 Right bundle-branch block now present.Myocardial infarct finding now present Sinus rhythm no longer present.Ventricular premature complex(es) no longer present Electronically Signed On 07-13-2024 17:12:44 CDT by Felicita Donaldson M.D. [id number]
--- NOTE | 2024-07-13 15:44 | XRR_ITS ---
PROCEDURE INFORMATION: Exam: XR Chest Exam date and time: 07/13/2024 3:50 PM Age: 78 years old Clinical indication: Cough and dyspnea; Additional info: Dyspnea/cough TECHNIQUE: Imaging protocol: Radiologic exam of the chest. Views: 1 view. COMPARISON: CR XR chest 1V portable [id number] 07/27/2023 4:28 PM FINDINGS: Airway: Airways are patent. Lungs: Linear densities in the periphery of the right lung base (question Leonardo B lines). Stable platelike atelectasis in the left lung base. Remainder of the lungs are clear. Pleural spaces: There is blunting of the right costophrenic angle. Left costophrenic angle is clear. There is no evidence of pneumothorax. Heart/Mediastinum: Cardiomediastinal silhouette is magnified due to technique. Diaphragm: There is nonspecific elevation of the left hemidiaphragm. Bones/joints: No acutely displaced fractures. Soft tissues: No acute soft tissue findings. Gastrointestinal tract: Air distended stomach. Organs: Surgical clips are present in the right upper quadrant, consistent with previous cholecystectomy. XR/XR chest 1V portable [id number] IMPRESSION: 1. Suspicion for mild interstitial pulmonary edema versus chronic interstitial disease in the right lung periphery (favored). 2. Likely scarring/atelectasis in the right costophrenic angle. Trace effusion in the differential but felt less likely. 3. Other stable/chronic findings as detailed above.
--- NOTE | 2024-07-13 15:44 | ECG_ITS ---
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 Measurements Intervals [place] Rate: 109 P: 48 [place]: 179 QRS: 268 QRSD: 134 T: 42 QT: 357 QTc: 482 Interpretive Statements SINUS TACHYCARDIA Left axis deviation RIGHT BUNDLE BRANCH BLOCK [120+ ms QRS DURATION, UPRIGHT V1, 40+ ms S IN I/aVL/V4/V5/V6] POSSIBLE ANTERIOR MYOCARDIAL INFARCTION , PROBABLY OLD [30 ms Q WAVE IN V3/V4, OR R < 0.2 mV IN V4] Compared to ECG 07/27/2023 18:02:14 Right bundle-branch block now present Myocardial infarct finding now present Sinus rhythm no longer present Ventricular premature complex(es) no longer present Left anterior fascicular block no longer present T-wave abnormality no longer present Electronically Signed On 07-13-2024 17:06:57 CDT by Felicita Donaldson M.D. [id number]
--- NOTE | 2024-07-13 16:00 | W.ED.CHESTPA ---
Documented by User: Norm Frances DO 07/14/24 06:16 HPI - Chest Pain General: Chief Complaint: Chest Pain Stated Complaint: cp Time Seen by Provider: 07/13/24 15:43 History of Present Illness: 78-year-old male presents emergency room complaining of substernal chest pain radiating into his back. Describes it is intermittent symptoms onset for couple of weeks complaining of shortness of breath he had some diaphoresis. No nausea or vomiting no diarrhea nonproductive cough. Patient is on apixaban due to previous history of DVT states he is continuing to take his medications. Mild substernal chest pain Associated symptoms: Reports dyspnea; Deny abdominal pain or fever(s) Related Data Home Medications Medication Instructions Recorded Confirmed aspirin 81 mg tablet,delayed 81 mg PO DAILY 09/25/20 03/13/24 release (Adult Aspirin Regimen) Previous Rx's Medication Instructions Recorded albuterol sulfate 90 mcg/actuation 2 puff inhalation Q4H PRN 01/06/23 aerosol inhaler shortness of breath or wheezing #8.5 grams sitagliptin phosphate 50 1 tab PO BID #180 tabs 01/06/23 mg-metformin 1,000 mg tablet (Janumet) tiotropium bromide 1.25 2 puff inhalation DAILY #4 grams 12/27/23 mcg/actuation mist for inhalation (Spiriva Respimat) carbamide peroxide 6.5 % ear drops 10 drp otic (ear) Q12H 4 days #15 02/27/24 (Debrox) mL apixaban 5 mg tablet (Eliquis) See Rx Instructions .Route 07/10/24 .COMPLEX #180 tabs glimepiride 2 mg tablet See Rx Instructions .Route 07/10/24 .COMPLEX #180 tabs lisinopril 20 mg tablet See Rx Instructions .Route 07/10/24 .COMPLEX #90 tabs Allergies Allergy/AdvReac Type Severity Reaction Status Date / Time codeine Allergy Unknown Verified 01/06/23 14:55 hydrocodone Allergy Unknown Verified 01/06/23 14:55 iodine Allergy ADR-Nausea Verified 01/06/23 14:55 morphine Allergy Unknown Verified 01/06/23 14:55 pregabalin [From Lyrica] Allergy ADR-Chest Verified 01/06/23 14:55 Pain warfarin [From Coumadin] Allergy Unknown Verified 01/06/23 14:55 Review of Systems Const: Denies: fever(s) or chills Card: Reports: chest pain Resp: Reports: dyspnea, wheezing and chest congestion GI: Denies: abdominal pain : Denies: dysuria, urinary frequency or urinary urgency Musc: Denies: neck pain or back pain Skin/Breast: Denies: rash PFSH ED PFSH: Medical History Type 2 diabetes mellitus 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 Degenerative arthritis COPD (chronic obstructive pulmonary disease) BMI 27.0-27.9,adult HTN (hypertension) Surgical History History of cholecystectomy S/P lobectomy of lung Family History Mother Diabetes CAD (coronary artery disease) Hypertension Social History Smoking and tobacco/nicotine status: never used tobacco/nicotine Physical Exam Const: GENERAL APPEARANCE: cooperative ORIENTATION/CONSCIOUSNESS: Yes awake, Yes oriented to person, Yes oriented to place and Yes oriented to time HENMT: COMMON NORMALS: normocephalic, atraumatic and hearing grossly normal bilaterally HEAD & SCALP: normocephalic and atraumatic Resp: AUSCULTATION: rhonchi and wheezes Cardio: COMMON NORMALS: regular rhythm and No murmurs present (Cardio) RATE: tachycardic RHYTHM: regular rhythm GI: COMMON NORMALS: Soft to palpation and No hepatosplenomegaly present AUSCULTATION: Yes normoactive bowel sounds PALPATION: Yes Soft to palpation, No Tenderness to palpation present (GI), No Guarding due to palpation present (GI) and Yes No hepatosplenomegaly present Extremity: COMMON NORMALS: normal to inspection, capillary refill normal, no clubbing, cyanosis or edema, no calf tenderness and no pedal edema Neuro: SENSORIUM/ORIENTATION: Yes oriented to person, Yes oriented to place and Yes oriented to time Skin: COMMON NORMALS: no rashes or lesions noted GENERAL SKIN EXAM: no rashes or lesions noted Course Vital Signs: Vital signs: Vital Signs Temperature 97.5 F L 07/13/24 15:40 Pulse Rate 83 07/13/24 20:42 Respiratory Rate 16 07/13/24 20:42 Blood Pressure 121/78 07/13/24 20:42 Pulse Oximetry 95 07/13/24 20:42 Oxygen Delivery Me thod Room Air 07/13/24 18:15 MDM - Chest Pain Medical Decision Making Care signed out to Dr. Dewey at change of shift. See final notes for diagnosis and disposition. Medical Records I reviewed the patient's medical records. Lab Data I reviewed the patient's lab results. 07/13/24 16:00 07/13/24 16:00 Radiology Impressions Chest X-Ray 07/13/24 15:44 IMPRESSION: 1. Suspicion for mild interstitial pulmonary edema versus chronic interstitial disease in the right lung periphery (favored). 2. Likely scarring/atelectasis in the right costophrenic angle. Trace effusion in the differential but felt less likely. 3. Other stable/chronic findings as detailed above. Chest/Abdomen/Pelvis CT 07/13/24 17:15 IMPRESSION: 1. No evidence of pulmonary embolism. Limited opacification and assessment of some of the left lower lobe subsegmental branches. 2. Mild cardiomegaly and interlobular septal thickening suggestive of component of CHF. 3. Chronic mild bibasilar bandlike atelectasis has increased from 2021. No focal pneumonic consolidation otherwise. IMPRESSION: 1. Trace dependent pelvic free fluid may be due to systemic volume overload/CHF as noted above . Otherwise no obvious intra-abdominal source . 2. Mild gastric wall thickening/gastritis. 3. Nonobstructive small right renal stones, mildly enlarged prostate and other chronic findings detailed COMMENTS: Consistent with the [employer]'s Incidental Findings Committee white paper (J Am Sole Radiol 2018): Any incidental renal lesion less than 1 cm or classified as too small to characterize, or any incidental cystic renal lesion characterized as simple-appearing, is likely benign. No follow-up imaging is recommended for these lesions per consensus recommendations based on imaging criteria. Laboratory Results WBC 5.18 10^3/uL (3.29-11.43) 07/13/24 16:00 RBC 5.42 10^6/uL (3.85-5.65) 07/13/24 16:00 Hgb 16.00 g/dL (11.27-16.99) 07/13/24 16:00 Hct 48.6 % (37-53) 07/13/24 16:00 MCV 89.7 fl (82-101) 07/13/24 16:00 MCH 29.5 pg (27-33) 07/13/24 16:00 MCHC 32.9 g/dL (30-55) 07/13/24 16:00 RDW 12.4 % (12.1-15.1) 07/13/24 16:00 Plt Count 209 10^3/cmm (157-399) 07/13/24 16:00 MPV 10.3 fL (7.4-10.4) 07/13/24 16:00 Neut % (Auto) 72.9 % 07/13/24 16:00 Lymph % (Auto) 14.5 % 07/13/24 16:00 [place] % (Auto) 11.0 % 07/13/24 16:00 Eos % (Auto) 1.0 % 07/13/24 16:00 Baso % (Auto) 0.2 % 07/13/24 16:00 Neut # (Auto) 3.78 10^3/uL (1.8-7.7) 07/13/24 16:00 Lymph # (Auto) 0.8 10^3/uL (0.8-4.8) 07/13/24 16:00 [place] # (Auto) 0.6 10^3/uL (0.2-0.9) 07/13/24 16:00 Eos # (Auto) 0.1 10^3/uL (0.0-0.8) 07/13/24 16:00 Baso # (Auto) 0.0 10^3/uL (0.0-0.1) 07/13/24 16:00 Nucleated RBC % (auto) 0 % 07/13/24 16:00 Nucleated RBCs # 0.0 /100WBC 07/13/24 16:00 Specimen Type Arterial 07/13/24 16:14 Sample Site Radial, left 07/13/24 16:14 ABG pH 7.45 (7.35-7.45) 07/13/24 16:14 ABG pCO2 39.1 mmHg (35-45) 07/13/24 16:14 ABG pO2 69.6 mmHg (80.0-100.0) L 07/13/24 16:14 ABG PO2/FiO2 Ratio 331 07/13/24 16:14 ABG HCO3 27.1 mmol/L (22-26) H 07/13/24 16:14 ABG O2 Saturation 95.8 07/13/24 16:14 ABG Base Excess 3.0 mmol/L (-2.0-2.0) H 07/13/24 16:14 David Test Pos 07/13/24 16:14 A-a O2 Gradient 4.1 mmHg (5-10) L 07/13/24 16:14 Hematocrit 47.1 % (42-52) 07/13/24 16:14 Hgb O2 Saturation 94.3 % (95-100) L 07/13/24 16:14 Carboxyhemoglobin 1.4 %THgb (0.4-20.1) 07/13/24 16:14 Methemoglobin 0.0 % (0.4-1.5) L 07/13/24 16:14 Total Hemoglobin 15.4 g/dL (14-18) 07/13/24 16:14 Sodium 138.0 mmol/L (131-143) 07/13/24 16:14 Potassium 4.4 mmol/L (3.5-5.0) 07/13/24 16:14 Glucose 203.0 mg/dL (70-115) H 07/13/24 16:14 Ionized Calcium 1.2 mmol/L (1.1-1.4) 07/13/24 16:14 O2 Delivery Device Room air 07/13/24 16:14 FiO2 21.0 % 07/13/24 16:14 Belt Machine Operator ID Monro 07/13/24 16:14 Sodium 139 mmol/L (136-145) 07/13/24 16:00 Potassium 4.6 mmol/L (3.5-5.1) 07/13/24 16:00 Chloride 99 mmol/L (98-107) 07/13/24 16:00 Carbon Dioxide 25 mmol/L (22-29) 07/13/24 16:00 Anion Gap 19.6 (5-19) H 07/13/24 16:00 BUN 19 mg/dL (8-23) 07/13/24 16:00 Creatinine 0.8 mg/dL (0.7-1.2) 07/13/24 16:00 GFR Calculation Not Reportable 07/13/24 16:00 Glucose 212 mg/dL (65-115) H 07/13/24 16:00 Calculated Osmolality 297 mOsm/kg (285-295) H 07/13/24 16:00 Lactic Acid 3.3 mmol/L (0.5-2.2) H 07/13/24 16:00 Lactic Acid (Sepsis) 2.2 mmol/L (0.5-2.2) 07/13/24 18:54 Calcium 9.1 mg/dL (8.5-10.5) 07/13/24 16:00 Magnesium 1.9 mg/dL (1.7-2.3) 07/13/24 16:00 Total Bilirubin 1.3 mg/dL (0.15-1.2) H 07/13/24 16:00 AST 39 U/L (0-40) 07/13/24 16:00 ALT 37 U/L (0-41) 07/13/24 16:00 Alkaline Phosphatase 113 U/L (40-130) 07/13/24 16:00 Troponin T Baseline 16 ng/L (0-15) H 07/13/24 16:00 Troponin T 120 Minute 13.25 ng/L (0-15) 07/13/24 17:53 Delta Troponin T -2.75 ABS# (0-10) L 07/13/24 17:53 Total Protein 6.8 g/dL (6.6-8.7) 07/13/24 16:00 Albumin 4.0 g/dL (3.5-5.2) 07/13/24 16:00 Globulin 2.8 g/dL (1.3-4.6) 07/13/24 16:00 Lipase 42 U/L (13-60) 07/13/24 16:00 Urine Color Dark yellow (Yellow) A 07/13/24 17:08 Urine Appearance Clear (CLEAR) 07/13/24 17:08 Urine pH 5.0 (5-7) 07/13/24 17:08 Ur Specific Smiley 1.031 (1.005-1.030) H 07/13/24 17:08 Urine Protein 1+ (Negative) A 07/13/24 17:08 Urine Glucose (UA) 3+ (Normal) H 07/13/24 17:08 Urine Ketones 1+ (Negative) H 07/13/24 17:08 Urine Blood Trace (Negative) A 07/13/24 17:08 Urine Nitrate Negative (Negative) 07/13/24 17:08 Urine Bilirubin 1+ (Negative) H 07/13/24 17:08 Urine Urobilinogen 1.0 mg/dL (Negative) 07/13/24 17:08 Ur Leukocyte Esterase Negative (Negative) 07/13/24 17:08 Urine RBC 0-4 /hpf (0-2) H 07/13/24 17:08 Urine WBC 0-4 /hpf (0-5) H 07/13/24 17:08 Ur Squamous Epith Cells 0-4 /hpf (0-5) H 07/13/24 17:08 Amorphous Sediment Not Reportable 07/13/24 17:08 Urine Bacteria Trace /hpf (NONE) 07/13/24 17:08 Urine Mucus 1+ /hpf 07/13/24 17:08 Coronavirus (PCR) Negative (Negative) 07/13/24 16:28 Influenza A (PCR) Negative (Negative) 07/13/24 16:28 Influenza Type B (PCR) Negative (Negative) 07/13/24 16:28 RSV (PCR) Negative (Negative) 07/13/24 16:28 Discharge Plan Discharge Patient Disposition: Home Clinical Impression: Acute dehydration Chest pain Qualifiers: Chest pain type: unspecified Qualified Code(s): R07.9 - Chest pain, unspecified Condition: Stable Prescriptions: No Action aspirin [Adult Aspirin Regimen] 81 mg tablet,delayed release (DR/EC) 81 mg PO DAILY Janumet 50-1,000 mg tablet 1 tab PO BID Qty: 180 3RF albuterol sulfate 90 mcg/actuation HFA aerosol inhaler 2 puff inhalation Q4H PRN (Reason: shortness of breath or wheezing) Qty: 8.5 2RF Spiriva Respimat 1.25 mcg/actuation mist 2 puff inhalation DAILY Qty: 4 1RF Debrox 6.5 % drops 10 drp otic (ear) Q12H 4 Days Qty: 15 0RF lisinopril 20 mg tablet See Rx Instructions .ROUTE .COMPLEX Qty: 90 1RF Dose Instruction: TAKE ONE TABLET BY MOUTH ONCE DAILY Rx Instructions: TAKE ONE TABLET BY MOUTH ONCE DAILY glimepiride 2 mg tablet See Rx Instructions .ROUTE .COMPLEX Qty: 180 0RF Dose Instruction: TAKE ONE TABLET BY MOUTH TWICE DAILY Rx Instructions: TAKE ONE TABLET BY MOUTH TWICE DAILY Eliquis 5 mg tablet See Rx Instructions .ROUTE .COMPLEX Qty: 180 0RF Dose Instruction: TAKE ONE TABLET BY MOUTH TWICE DAILY Rx Instructions: TAKE ONE TABLET BY MOUTH TWICE DAILY Discharge Orders: Discharge ED (Routine); Ordered 07/13/24 Ordered By: Karri Dewey Referrals: Neeru Hickey, [employer] [Primary Care Provider] - 1 week Patient Instructions: Dehydration - Adult, Chest Pain (ED) Activity Restrictions/Additional Instructions: Thank you for choosing [facility] for your healthcare needs today. Please realize that you were seen in the emergency department and that we are providing you with an emergency medical screening exam and this may not be a complete and all exclusive of all testing and/or medical workup we may need to determine your element or severity of your illness. It is very important that you follow-up as instructed with your primary care provider or specialist for the additional evaluation and to discuss your medical treatment plan. You may return to the emergency department should you have concerns or if your condition changes or worsens in any way. Coding Level of Care Code ED Maintenance And Operations Supervisor for [facility] [employer] Documented by User: Karri Dewey DO 07/13/24 22:23 HPI - Chest Pain General: Chief Complaint: Chest Pain Stated Complaint: cp Time Seen by Provider: 07/13/24 15:43 Related Data Home Medications Medication Instructions Recorded Confirmed aspirin 81 mg tablet,delayed 81 mg PO DAILY 09/25/20 03/13/24 release (Adult Aspirin Regimen) Previous Rx's Medication Instructions Recorded albuterol sulfate 90 mcg/actuation 2 puff inhalation Q4H PRN 01/06/23 aerosol inhaler shortness of breath or wheezing #8.5 grams sitagliptin phosphate 50 1 tab PO BID #180 tabs 01/06/23 mg-metformin 1,000 mg tablet (Janumet) tiotropium bromide 1.25 2 puff inhalation DAILY #4 grams 12/27/23 mcg/actuation mist for inhalation (Spiriva Respimat) carbamide peroxide 6.5 % ear drops 10 drp otic (ear) Q12H 4 days #15 02/27/24 (Debrox) mL apixaban 5 mg tablet (Eliquis) See Rx Instructions .Route 07/10/24 .COMPLEX #180 tabs glimepiride 2 mg tablet See Rx Instructions .Route 07/10/24 .COMPLEX #180 tabs lisinopril 20 mg tablet See Rx Instructions .Route 07/10/24 .COMPLEX #90 tabs Allergies Allergy/AdvReac Type Severity Reaction Status Date / Time codeine Allergy Unknown Verified 01/06/23 14:55 hydrocodone Allergy Unknown Verified 01/06/23 14:55 iodine Allergy ADR-Nausea Verified 01/06/23 14:55 morphine Allergy Unknown Verified 01/06/23 14:55 pregabalin [From Lyrica] Allergy ADR-Chest Verified 01/06/23 14:55 Pain warfarin [From Coumadin] Allergy Unknown Verified 01/06/23 14:55 PFSH ED PFSH: Medical History Type 2 diabetes mellitus 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 Degenerative arthritis COPD (chronic obstructive pulmonary disease) BMI 27.0-27.9,adult HTN (hypertension) Surgical History History of cholecystectomy S/P lobectomy of lung Family History Mother Diabetes CAD (coronary artery disease) Hypertension Social History Smoking and tobacco/nicotine status: never used tobacco/nicotine Course Vital Signs: Vital signs: Vital Signs Temperature 97.5 F L 07/13/24 15:40 Pulse Rate 83 07/13/24 20:42 Respiratory Rate 16 07/13/24 20:42 Blood Pressure 121/78 07/13/24 20:42 Pulse Oximetry 95 07/13/24 20:42 Oxygen Delivery Me thod Room Air 07/13/24 18:15 MDM - Chest Pain Medical Decision Making Care signed out to Dr. Dewey at change of shift. See final notes for diagnosis and disposition. Patient care turned over to myself at shift change, reviewed lab work CT scans chest x-rays, evaluated the patient, patient was feeling much better after fluid bolus and had a talk with him and family that other than the lactic acid being slightly elevated in the beginning but that did improve with fluid, and him feeling much better I do not really have any reason to keep him in the hospital. Patient was happy with this and said he wanted to go home and did not want to stay anyways so after talking with him and family we will plan lidocaine be discharged to go home for further evaluation and treatment by PCP within the next 7 days. Lab Data 07/13/24 16:00 07/13/24 16:00 Radiology Impressions Chest X-Ray 07/13/24 15:44 IMPRESSION: 1. Suspicion for mild interstitial pulmonary edema versus chronic interstitial disease in the right lung periphery (favored). 2. Likely scarring/atelectasis in the right costophrenic angle. Trace effusion in the differential but felt less likely. 3. Other stable/chronic findings as detailed above. Chest/Abdomen/Pelvis CT 07/13/24 17:15 IMPRESSION: 1. No evidence of pulmonary embolism. Limited opacification and assessment of some of the left lower lobe subsegmental branches. 2. Mild cardiomegaly and interlobular septal thickening suggestive of component of CHF. 3. Chronic mild bibasilar bandlike atelectasis has increased from 2021. No focal pneumonic consolidation otherwise. IMPRESSION: 1. Trace dependent pelvic free fluid may be due to systemic volume overload/CHF as noted above . Otherwise no obvious intra-abdominal source . 2. Mild gastric wall thickening/gastritis. 3. Nonobstructive small right renal stones, mildly enlarged prostate and other chronic findings detailed COMMENTS: Consistent with the [place] [employer]'s Incidental Findings Committee white paper (J Am Sole Radiol 2018): Any incidental renal lesion less than 1 cm or classified as too small to characterize, or any incidental cystic renal lesion characterized as simple-appearing, is likely benign. No follow-up imaging is recommended for these lesions per consensus recommendations based on imaging criteria. Laboratory Results WBC 5.18 10^3/uL (3.29-11.43) 07/13/24 16:00 RBC 5.42 10^6/uL (3.85-5.65) 07/13/24 16:00 Hgb 16.00 g/dL (11.27-16.99) 07/13/24 16:00 Hct 48.6 % (37-53) 07/13/24 16:00 MCV 89.7 fl (82-101) 07/13/24 16:00 MCH 29.5 pg (27-33) 07/13/24 16:00 MCHC 32.9 g/dL (30-55) 07/13/24 16:00 RDW 12.4 % (12.1-15.1) 07/13/24 16:00 Plt Count 209 10^3/cmm (157-399) 07/13/24 16:00 MPV 10.3 fL (7.4-10.4) 07/13/24 16:00 Neut % (Auto) 72.9 % 07/13/24 16:00 Lymph % (Auto) 14.5 % 07/13/24 16:00 [place] % (Auto) 11.0 % 07/13/24 16:00 Eos % (Auto) 1.0 % 07/13/24 16:00 Baso % (Auto) 0.2 % 07/13/24 16:00 Neut # (Auto) 3.78 10^3/uL (1.8-7.7) 07/13/24 16:00 Lymph # (Auto) 0.8 10^3/uL (0.8-4.8) 07/13/24 16:00 [place] # (Auto) 0.6 10^3/uL (0.2-0.9) 07/13/24 16:00 Eos # (Auto) 0.1 10^3/uL (0.0-0.8) 07/13/24 16:00 Baso # (Auto) 0.0 10^3/uL (0.0-0.1) 07/13/24 16:00 Nucleated RBC % (auto) 0 % 07/13/24 16:00 Nucleated RBCs # 0.0 /100WBC 07/13/24 16:00 Specimen Type Arterial 07/13/24 16:14 Sample Site Radial, left 07/13/24 16:14 ABG pH 7.45 (7.35-7.45) 07/13/24 16:14 ABG pCO2 39.1 mmHg (35-45) 07/13/24 16:14 ABG pO2 69.6 mmHg (80.0-100.0) L 07/13/24 16:14 ABG PO2/FiO2 Ratio 331 07/13/24 16:14 ABG HCO3 27.1 mmol/L (22-26) H 07/13/24 16:14 ABG O2 Saturation 95.8 07/13/24 16:14 ABG Base Excess 3.0 mmol/L (-2.0-2.0) H 07/13/24 16:14 David Test Pos 07/13/24 16:14 A-a O2 Gradient 4.1 mmHg (5-10) L 07/13/24 16:14 Hematocrit 47.1 % (42-52) 07/13/24 16:14 Hgb O2 Saturation 94.3 % (95-100) L 07/13/24 16:14 Carboxyhemoglobin 1.4 %THgb (0.4-20.1) 07/13/24 16:14 Methemoglobin 0.0 % (0.4-1.5) L 07/13/24 16:14 Total Hemoglobin 15.4 g/dL (14-18) 07/13/24 16:14 Sodium 138.0 mmol/L (131-143) 07/13/24 16:14 Potassium 4.4 mmol/L (3.5-5.0) 07/13/24 16:14 Glucose 203.0 mg/dL (70-115) H 07/13/24 16:14 Ionized Calcium 1.2 mmol/L (1.1-1.4) 07/13/24 16:14 O2 Delivery Device Room air 07/13/24 16:14 FiO2 21.0 % 07/13/24 16:14 Belt Machine Operator ID Monro 07/13/24 16:14 Sodium 139 mmol/L (136-145) 07/13/24 16:00 Potassium 4.6 mmol/L (3.5-5.1) 07/13/24 16:00 Chloride 99 mmol/L (98-107) 07/13/24 16:00 Carbon Dioxide 25 mmol/L (22-29) 07/13/24 16:00 Anion Gap 19.6 (5-19) H 07/13/24 16:00 BUN 19 mg/dL (8-23) 07/13/24 16:00 Creatinine 0.8 mg/dL (0.7-1.2) 07/13/24 16:00 GFR Calculation Not Reportable 07/13/24 16:00 Glucose 212 mg/dL (65-115) H 07/13/24 16:00 Calculated Osmolality 297 mOsm/kg (285-295) H 07/13/24 16:00 Lactic Acid 3.3 mmol/L (0.5-2.2) H 07/13/24 16:00 Lactic Acid (Sepsis) 2.2 mmol/L (0.5-2.2) 07/13/24 18:54 Calcium 9.1 mg/dL (8.5-10.5) 07/13/24 16:00 Magnesium 1.9 mg/dL (1.7-2.3) 07/13/24 16:00 Total Bilirubin 1.3 mg/dL (0.15-1.2) H 07/13/24 16:00 AST 39 U/L (0-40) 07/13/24 16:00 ALT 37 U/L (0-41) 07/13/24 16:00 Alkaline Phosphatase 113 U/L (40-130) 07/13/24 16:00 Troponin T Baseline 16 ng/L (0-15) H 07/13/24 16:00 Troponin T 120 Minute 13.25 ng/L (0-15) 07/13/24 17:53 Delta Troponin T -2.75 ABS# (0-10) L 07/13/24 17:53 Total Protein 6.8 g/dL (6.6-8.7) 07/13/24 16:00 Albumin 4.0 g/dL (3.5-5.2) 07/13/24 16:00 Globulin 2.8 g/dL (1.3-4.6) 07/13/24 16:00 Lipase 42 U/L (13-60) 07/13/24 16:00 Urine Color Dark yellow (Yellow) A 07/13/24 17:08 Urine Appearance Clear (CLEAR) 07/13/24 17:08 Urine pH 5.0 (5-7) 07/13/24 17:08 Ur Specific Smiley 1.031 (1.005-1.030) H 07/13/24 17:08 Urine Protein 1+ (Negative) A 07/13/24 17:08 Urine Glucose (UA) 3+ (Normal) H 07/13/24 17:08 Urine Ketones 1+ (Negative) H 07/13/24 17:08 Urine Blood Trace (Negative) A 07/13/24 17:08 Urine Nitrate Negative (Negative) 07/13/24 17:08 Urine Bilirubin 1+ (Negative) H 07/13/24 17:08 Urine Urobilinogen 1.0 mg/dL (Negative) 07/13/24 17:08 Ur Leukocyte Esterase Negative (Negative) 07/13/24 17:08 Urine RBC 0-4 /hpf (0-2) H 07/13/24 17:08 Urine WBC 0-4 /hpf (0-5) H 07/13/24 17:08 Ur Squamous Epith Cells 0-4 /hpf (0-5) H 07/13/24 17:08 Amorphous Sediment Not Reportable 07/13/24 17:08 Urine Bacteria Trace /hpf (NONE) 07/13/24 17:08 Urine Mucus 1+ /hpf 07/13/24 17:08 Coronavirus (PCR) Negative (Negative) 07/13/24 16:28 Influenza A (PCR) Negative (Negative) 07/13/24 16:28 Influenza Type B (PCR) Negative (Negative) 07/13/24 16:28 RSV (PCR) Negative (Negative) 07/13/24 16:28 All radiology interpretation(s) finalized by discharge Discharge Plan Discharge Patient Disposition: Home Clinical Impression: Acute dehydration Chest pain Qualifiers: Chest pain type: unspecified Qualified Code(s): R07.9 - Chest pain, unspecified Condition: Stable Prescriptions: No Action aspirin [Adult Aspirin Regimen] 81 mg tablet,delayed release (DR/EC) 81 mg PO DAILY Janumet 50-1,000 mg tablet 1 tab PO BID Qty: 180 3RF albuterol sulfate 90 mcg/actuation HFA aerosol inhaler 2 puff inhalation Q4H PRN (Reason: shortness of breath or wheezing) Qty: 8.5 2RF Spiriva Respimat 1.25 mcg/actuation mist 2 puff inhalation DAILY Qty: 4 1RF Debrox 6.5 % drops 10 drp otic (ear) Q12H 4 Days Qty: 15 0RF lisinopril 20 mg tablet See Rx Instructions .ROUTE .COMPLEX Qty: 90 1RF Dose Instruction: TAKE ONE TABLET BY MOUTH ONCE DAILY Rx Instructions: TAKE ONE TABLET BY MOUTH ONCE DAILY glimepiride 2 mg tablet See Rx Instructions .ROUTE .COMPLEX Qty: 180 0RF Dose Instruction: TAKE ONE TABLET BY MOUTH TWICE DAILY Rx Instructions: TAKE ONE TABLET BY MOUTH TWICE DAILY Eliquis 5 mg tablet See Rx Instructions .ROUTE .COMPLEX Qty: 180 0RF Dose Instruction: TAKE ONE TABLET BY MOUTH TWICE DAILY Rx Instructions: TAKE ONE TABLET BY MOUTH TWICE DAILY Discharge Orders: Discharge ED (Routine); Ordered 07/13/24 Ordered By: Karri Dewey Referrals: Neeru Hickey [employer] [Primary Care Provider] - 1 week Patient Instructions: Dehydration - Adult, Chest Pain (ED) Activity Restrictions/Additional Instructions: Thank you for choosing [facility] for your healthcare needs today. Please realize that you were seen in the emergency department and that we are providing you with an emergency medical screening exam and this may not be a complete and all exclusive of all testing and/or medical workup we may need to determine your element or severity of your illness. It is very important that you follow-up as instructed with your primary care provider or specialist for the additional evaluation and to discuss your medical treatment plan. You may return to the emergency department should you have concerns or if your condition changes or worsens in any way. Coding Level of Care Code ED Maintenance And Operations Supervisor for Deann Morton
[2024-07-13] MEDS: aspirin 81 mg Chew Tablet 324 MG PO (16:08)
[2024-07-13 16:20] LABS: Basophils % 0.2 %; Eosinophils # 0.1 10^3/uL (0.0-0.8); Hematocrit 48.6 % (37-53); Lymphocytes # 0.8 10^3/uL (0.8-4.8); Lymphocytes % 14.5 %; Mean Corpuscular HGB Conc 32.9 g/dL (30-55); Mean Corpuscular Hemoglobin 29.5 pg (27-33); Mean Corpuscular Volume 89.7 fl (82-101); Mean Platelet Volume 10.3 fL (7.4-10.4); Monocytes # 0.6 10^3/uL (0.2-0.9); Neutrophils # 3.78 10^3/uL (1.8-7.7); Neutrophils % 72.9 %; Nucleated Red Blood Cells % 0 %; Platelet Count 209 10^3/cmm (157-399); Red Blood Count 5.42 10^6/uL (3.85-5.65); Red Cell Distribution Width 12.4 % (12.1-15.1); White Blood Count 5.18 10^3/uL (3.29-11.43)
[2024-07-13 16:28] LABS: ABG PCO2 39.1 mmHg (35-45); ABG PH Result 7.45 (7.35-7.45); Alveolar-Arterial Oxygen Gradi 4.1 mmHg (5-10); Arterial Blood Gas Hematocrit 47.1 % (42-52); Blood Gas Allen Test Pos; Blood Gas Operator Identificat MONRO; Blood Gas Sample Site Radial, left; Blood Gas Sample Type Arterial; Carboxyhemoglobin 1.4 %THgb (0.4-20.1); HCO3 ABG 27.1 mmol/L (22-26); HGB O2 Sat 94.3 % (95-100); Ionized Calcium Level - ABG 1.2 mmol/L (1.1-1.4); Oxygen Device ROOM AIR; Oxygen Saturation ABG 95.8; PO2 ABG 69.6 mmHg (80.0-100.0); PO2 FiO2 Ratio Arterial Blood 331; Potassium Level - ABG 4.4 mmol/L (3.5-5.0); Total Hemoglobin 15.4 g/dL (14-18)
[2024-07-13 16:38] LABS: Alanine Aminotransferase 37 U/L (0-41); Alkaline Phosphatase 113 U/L (40-130); Aspartate Amino Transferase 39 U/L (0-40); Blood Urea Nitrogen 19 mg/dL (8-23); Calcium 9.1 mg/dL (8.5-10.5); Carbon Dioxide 25 mmol/L (22-29); Chloride 99 mmol/L (98-107); Creatinine Clr Calc Pharmacy 81.9327; Globulin 2.8 g/dL (1.3-4.6); Glucose 212 mg/dL (65-115); Lipase 42 U/L (13-60); Magnesium 1.9 mg/dL (1.7-2.3); Osmolality Calculated 297 mOsm/kg (285-295); Sodium 139 mmol/L (136-145); Total Bilirubin 1.3 mg/dL (0.15-1.2); Total Protein 6.8 g/dL (6.6-8.7)
[2024-07-13 16:40] LABS: Lactic Sepsis W/Reflex 3.3 mmol/L (0.5-2.2)
[2024-07-13 16:41] LABS: Troponin(5th) Baseline 16 ng/L (0-15)
[2024-07-13 16:45] LABS: Anion Gap 19.6 (5-19); Potassium 4.6 mmol/L (3.5-5.1)
[2024-07-13 17:13] LABS: Covid PCR NEGATIVE (Negative); Influenza A NEGATIVE (Negative); Influenza B NEGATIVE (Negative); Respiratory Syncytial Virus Ce NEGATIVE (Negative)
--- NOTE | 2024-07-13 17:15 | CTR_ITS ---
PROCEDURE INFORMATION: Exam: CTA Chest With Contrast Exam date and time: 07/13/2024 5:36 PM Age: 78 years old Clinical indication: Other: N/a; Abdominal pain; Generalized; Shortness of breath; Radiating; Prior surgery; Surgery date: 6+ months; Surgery type: Left lung lobectomy. Gb. Patient HX: Chest and upper back pain with diffuse abd pain. History of copd. ; Additional info: Chest abd pain/sepsis/abd pain TECHNIQUE: Imaging protocol: Computed tomographic angiography of the chest with contrast. Exam focused on the arteries. 3D rendering (Not supervised by radiologist): MIP and/or 3D reconstructed images were created by the technologist. Radiation optimization: All CT scans at this facility use at least one of these dose optimization techniques: automated exposure control; mA and/or kV adjustment per patient size (includes targeted exams where dose is matched to clinical indication); or iterative reconstruction. Contrast material: OMNI 350; Contrast volume: 100 ml; Contrast route: INTRAVENOUS (IV); COMPARISON: CT angio chest PE protcl [id number] 10/03/2022 12:09 AM RADIATION DOSE METRICS: Total DLP (mGy-cm): 1117.72 FINDINGS: Pulmonary arteries: No central pulmonary emboli to the segmental/subsegmental level. Limited assessment of some of the basilar left lower lobe subsegmental branches due to suboptimal opacification. Aorta: Unremarkable. No aortic aneurysm. No aortic dissection. Lungs: Mild bibasilar bandlike atelectasis/scarring, mildly increased from 10/03/2022. Patchy right lower lobe pleural-parenchymal calcification associated with chronic pleural-parenchymal thickening again noted. A few scattered calcified lung granulomas again noted. Mild basilar interlobular septal thickening. Pleural spaces: See Lungs finding. Heart: Borderline cardiomegaly. Lymph nodes: Mild enlargement of right phrenic lymph node up to 1.8 cm (series 7, image [id number]), minimally increased from prior study. A few hqjz-ec-retosfsofv enlarged hiatal/crural lymph nodes up to 2.3 cm (image [id number]) are not significantly changed. Diaphragm: Moderate chronic elevation of the left hemidiaphragm. Bones/joints: Mild multilevel thoracic spondylosis. Large hemangiomas noted in T12 , T10 and T8 vertebral bodies. Soft tissues: Moderate gynecomastia. PROCEDURE INFORMATION: Exam: CT Abdomen And Pelvis With Contrast Exam date and time: 07/13/2024 5:36 PM Age: 78 years old Clinical indication: Other: N/a; Abdominal pain; Generalized; Shortness of breath; Radiating; Prior surgery; Surgery date: 6+ months; Surgery type: Left lung lobectomy. Gb. Patient HX: Chest and upper back pain with diffuse abd pain. History of copd. ; Additional info: Chest abd pain/sepsis/abd pain TECHNIQUE: Imaging protocol: Computed tomography of the abdomen and pelvis with contrast. Radiation optimization: All CT scans at this facility use at least one of these dose optimization techniques: automated exposure control; mA and/or kV adjustment per patient size (includes targeted exams where dose is matched to clinical indication); or iterative reconstruction. Contrast material: OMNI 350; Contrast volume: 100 ml; Contrast route: INTRAVENOUS (IV); COMPARISON: CT angio chest PE protcl [id number] 10/03/2022 12:09 AM RADIATION DOSE METRICS: Total DLP (mGy-cm): 1117.72 FINDINGS: Liver: 0.8 cm left lobe liver lesion and additional subcentimeter hypodense lesions are too small to characterize but statistically likely due to benign etiology and stable from 10/03/2022. A 3 x 2.1 cm right lobe liver lesion with peripheral nodular enhancement is compatible with a hemangioma. Focal triangular subcapsular hypodensity in the right liver lobe (series 5, image 35) is likely due to focal scar. Gallbladder and biliary ducts: Prior cholecystectomy. No biliary dilatation. Pancreas: Normal. No ductal dilation. Spleen: Stable mild splenomegaly up to 14 cm. Adrenal glands: Normal. No mass. Kidneys and ureters: 1.6 cm left renal cyst, 2.8 cm right renal cyst. A few additional subcentimeter lesions are too small to characterize but statistically likely due to additional small cysts. Nonobstructive right renal lower pole stones X 2 up to 4 mm. No hydronephrosis or hydroureter. Stomach and bowel: Moderate amount of colonic stool. Mild gastric wall thickening/gastritis Appendix: Unremarkable appendix. Intraperitoneal space: Small amount pelvic free fluid. Vasculature: Moderate atherosclerotic calcification of the abdominal aorta and iliac arteries. Ewmu-gq-yrqivamp stenosis of the proximal SMA due to calcified and noncalcified plaque. Lymph nodes: Unremarkable. No enlarged lymph nodes. Urinary bladder: Unremarkable as visualized. Reproductive: Mildly enlarged prostate. Bones/joints: Mild multilevel lumbar spondylosis Soft tissues: xmxhi-qs-srcfqvmi bilateral inguinal fatty hernias. Tiny fatty umbilical hernia. CT/CT angio chest w abd pel w con IMPRESSION: 1. No evidence of pulmonary embolism. Limited opacification and assessment of some of the left lower lobe subsegmental branches. 2. Mild cardiomegaly and interlobular septal thickening suggestive of component of CHF. 3. Chronic mild bibasilar bandlike atelectasis has increased from 2021. No focal pneumonic consolidation otherwise. IMPRESSION: 1. Trace dependent pelvic free fluid may be due to systemic volume overload/CHF as noted above . Otherwise no obvious intra-abdominal source . 2. Mild gastric wall thickening/gastritis. 3. Nonobstructive small right renal stones, mildly enlarged prostate and other chronic findings detailed COMMENTS: Consistent with the [employer]'s Incidental Findings Committee white paper (J Am Sole Radiol 2018): Any incidental renal lesion less than 1 cm or classified as too small to characterize, or any incidental cystic renal lesion characterized as simple-appearing, is likely benign. No follow-up imaging is recommended for these lesions per consensus recommendations based on imaging criteria.
--- NOTE | 2024-07-13 17:26 | ECG_ITS ---
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[id number] Requested By: Norm Najera Order Number: [id number] Frankie MD: MONICA OSUNA Measurements Intervals [place] Rate: 95 P: 53 DC: 169 QRS: -90 QRSD: 138 T: 31 QT: 372 QTc: 469 Interpretive Statements SINUS RHYTHM POSSIBLE LEFT ATRIAL ENLARGEMENT [-0.1mV P-WAVE IN V1/V2] RIGHT BUNDLE BRANCH BLOCK [120+ ms QRS DURATION, UPRIGHT V1, 40+ ms S IN I/aVL/V4/V5/V6] LEFT ANTERIOR FASCICULAR BLOCK [QRS AXIS <= -45, QR IN I, RS IN II] POSSIBLE ANTERIOR MYOCARDIAL INFARCTION , PROBABLY OLD [30 ms Q WAVE IN V3/V4, OR R < 0.2 mV IN V4] Compared to ECG 07/13/2024 15:55:03 Left anterior fascicular block now present Sinus tachycardia no longer present Left-axis deviation no longer present Myocardial infarct finding still present Electronically Signed On 07-15-2024 19:01:45 CDT by MONICA OSUNA [email or web address]
[2024-07-13] MEDS: diphenhydrAMINE 50 mg/mL SDV 1mL IVP (17:29)
[2024-07-13] MEDS: methylPREDNISolone sod succ 40 mg/mL INJ IVP (17:30)
[2024-07-13 17:32] LABS: Charge for UA Resulting for Rev
[2024-07-13] MEDS: iohexol 350 mg/mL 500 mL Btl (per mL) IV (17:46)
[2024-07-13 17:53] LABS: Bilirubin Urine 1+ (Negative); Blood Urine Trace (Negative); Glucose Urine UA 3+ (Normal); Ketones Urine 1+ (Negative); Leukocyte Esterase Urine Negative (Negative); Nitrate Urine Negative (Negative); Protein Urine 1+ (Negative); Urine Appearance Clear (CLEAR); Urine Color Dark Yellow (Yellow)
[2024-07-13 17:58] LABS: Reflex Lactate Order REFLEX LACTIC ORDERD
[2024-07-13 18:16] LABS: Troponin 5 2HR 13.25 ng/L (0-15)
[2024-07-13] MEDS: piperacillin-tazobactam 3.375 GM in sodium chloride 0.9% (plus) 50 ML IV (18:16)
[2024-07-13 18:17] LABS: Troponin 5 2HR Delta -2.75 ABS# (0-10)
[2024-07-13 18:30] LABS: Bacteria Urine TRACE /hpf; Mucus Urine 1+ /hpf; RBC Urine 0-4 /hpf (0-2); Specific Gravity, Urine 1.031 (1.005-1.030); Squamous Epithelial Cell Urine 0-4 /hpf (0-5); UA Manual Slide Review YES; WBC Urine 0-4 /hpf (0-5)
[2024-07-13 19:20] LABS: Lactic Acid level (Lactate) 2.2 mmol/L (0.5-2.2)
== END 2024-07-13 20:52 | disposition home or self-care (01) ==
PROVIDERS: Emergency Provider Family Medicine; PCP Nurse Practitioner Family
DX: R07.9 Chest pain, unspecified (principal); E86.0 Dehydration; Z79.01 Long term (current) use of anticoagulants; Z79.82 Long term (current) use of aspirin; Z79.84 Long term (current) use of oral hypoglycemic drugs; E11.9 Type 2 diabetes mellitus without complications; J44.9 Chronic obstructive pulmonary disease, unspecified; I10 Essential (primary) hypertension; Z90.2 Acquired absence of lung [part of]
CPT/HCPCS: 0241U; 36415; 36600; 71045; 71275; 74177; 80051; 80053; 81003; 81015; 82330; 82805; 83605; 83690; 83735; 84484; 85025; 87040; 93005; 96365; 96366; 96375; 99285; J1200; J2543; J2919; J7030

== ENCOUNTER 2024-07-25 18:34 | Emergency (ER) | payer MEDICARE, SELFPAY ==
[2024-07-25 18:40] VITALS: BP 143/65; PULSE 90; RESP 16; TEMP 36.5; O2SAT 95; BMI 26.2
--- NOTE | 2024-07-25 18:47 | CTR_ITS ---
PROCEDURE INFORMATION: Exam: CT Head Without Contrast Exam date and time: 07/25/2024 7:01 PM Age: 78 years old Clinical indication: Injury or trauma; Fall; Other: Pain TECHNIQUE: Imaging protocol: Computed tomography of the head without contrast. Radiation optimization: All CT scans at this facility use at least one of these dose optimization techniques: automated exposure control; mA and/or kV adjustment per patient size (includes targeted exams where dose is matched to clinical indication); or iterative reconstruction. COMPARISON: CT head wo con* [id number] 03/19/2021 1:51 PM RADIATION DOSE METRICS: Total DLP (mGy-cm): 1199 FINDINGS: Brain: Mild generalized cortical volume loss. Periventricular and subcortical white matter hypodensities likely represent chronic small vessel ischemic changes. No acute intracranial hemorrhage or discrete extra-axial fluid collection. Cerebral ventricles: No ventriculomegaly. Paranasal sinuses: Visualized sinuses are unremarkable. No fluid levels. Mastoid air cells: Visualized mastoid air cells are well aerated. Nasal cavity: Leftward deviation of the nasal septum. Bones: Calvarium appears intact. Soft tissues: Left frontal scalp contusion with small hematoma. CT/CT head wo con* [id number] IMPRESSION: 1. No acute intracranial findings. 2. Left frontal scalp contusion/hematoma.
--- NOTE | 2024-07-25 18:49 | W.ED.FALL ---
HPI - Fall General: Chief Complaint: Fall Stated Complaint: Fall--head injury Time Seen by Provider: 07/25/24 18:46 Source: patient Mode of arrival: ambulatory Limitations: no limitations History of Present Illness: 78-year-old male states that he had tripped and fell and hit his head roughly 3 hours ago. He denies any loss conscious does have a left frontal hematoma and he has a headache. He is on Eliquis. States he had had a little skin tear on his left arm but denies any pain in that arm denies neck pain or any other injuries. Associated symptoms-after fall: Reports headache(s); Denies abdominal pain, chest pain or neck pain Related Data Home Medications Medication Instructions Recorded Confirmed aspirin 81 mg tablet,delayed 81 mg PO DAILY 09/25/20 03/13/24 release (Adult Aspirin Regimen) Previous Rx's Medication Instructions Recorded albuterol sulfate 90 mcg/actuation 2 puff inhalation Q4H PRN 01/06/23 aerosol inhaler shortness of breath or wheezing #8.5 grams sitagliptin phosphate 50 1 tab PO BID #180 tabs 01/06/23 mg-metformin 1,000 mg tablet (Janumet) tiotropium bromide 1.25 2 puff inhalation DAILY #4 grams 12/27/23 mcg/actuation mist for inhalation (Spiriva Respimat) carbamide peroxide 6.5 % ear drops 10 drp otic (ear) Q12H 4 days #15 02/27/24 (Debrox) mL apixaban 5 mg tablet (Eliquis) See Rx Instructions .Route 07/10/24 .COMPLEX #180 tabs glimepiride 2 mg tablet See Rx Instructions .Route 07/10/24 .COMPLEX #180 tabs lisinopril 20 mg tablet See Rx Instructions .Route 07/10/24 .COMPLEX #90 tabs Allergies Allergy/AdvReac Type Severity Reaction Status Date / Time codeine Allergy Unknown Verified 01/06/23 14:55 hydrocodone Allergy Unknown Verified 01/06/23 14:55 iodine Allergy ADR-Nausea Verified 01/06/23 14:55 morphine Allergy Unknown Verified 01/06/23 14:55 pregabalin [From Lyrica] Allergy ADR-Chest Verified 01/06/23 14:55 Pain warfarin [From Coumadin] Allergy Unknown Verified 01/06/23 14:55 Review of Systems Const: Denies: fever(s), chills, body aches or change in appetite Eyes: Denies: blurry vision or eye discomfort ENMT: Denies: throat pain or dental pain Card: Denies: chest pain Resp: Denies: dyspnea GI: Denies: abdominal pain, nausea, vomiting or diarrhea Musc: Denies: neck pain or back pain Skin/Breast: Denies: rash Neuro: Reports: headache(s) PFSH ED PFSH: Medical History Type 2 diabetes mellitus 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 Degenerative arthritis COPD (chronic obstructive pulmonary disease) BMI 27.0-27.9,adult HTN (hypertension) Surgical History History of cholecystectomy S/P lobectomy of lung Family History Mother Diabetes CAD (coronary artery disease) Hypertension Social History Smoking and tobacco/nicotine status: former use of tobacco/nicotine Physical Exam Const: COMMON NORMALS: no acute distress, patient oriented x3 and healthy appearing HENMT: COMMON NORMALS: normocephalic HEAD & SCALP: normocephalic OTHER: Left frontal hematoma Eye: COMMON NORMALS: Equal, round and reactive pupils present and EOMs intact bilaterally PUPIL: Yes Equal, round and reactive pupils present Neck/C-Spine: COMMON NORMALS: full ROM and supple CERVICAL SPINE: Yes cervical ROM normal, No pain with cervical ROM and No Cervical spine tenderness Chest: COMMONS NORMALS: normal inspection of the chest and normal palpation of entire chest wall Resp: COMMON NORMALS: normal respiratory effort, No retractions, No use of accessory muscles and clear to auscultation bilaterally AUSCULTATION: clear to auscultation bilaterally Cardio: COMMON NORMALS: regular rate, regular rhythm and No murmurs present (Cardio) RATE: regular rate RHYTHM: regular rhythm Extremity: COMMON NORMALS: full ROM NARRATIVE EXTREMITY EXAM: Skin tear noted left forearm no deformity or tenderness Neuro: COMMON NORMALS: patient oriented x3, moves all extremities and no focal motor deficits Psych: COMMON NORMALS: mental status grossly normal, Normal thought process present and cooperative THOUGHT PROCESS: Normal thought process present Skin: COMMON NORMALS: no rashes or lesions noted GENERAL SKIN EXAM: no rashes or lesions noted Course Vital Signs: Vital signs: Vital Signs Temperature 97.7 F 07/25/24 18:40 Pulse Rate 90 07/25/24 18:40 Respiratory Rate 16 07/25/24 18:40 Blood Pressure 143/65 07/25/24 18:40 Pulse Oximetry 95 07/25/24 18:40 Oxygen Delivery Me thod Room Air 07/25/24 18:40 MDM - Fall Medical Decision Making Patient presents here with close head injury from a fall his head CT here is negative he is well-appearing here no signs of cervical injury he is stable for discharge follow-up PCP return if worsening. Medical Records I reviewed the patient's medical records. Lab Data Radiology Impressions Head CT 07/25/24 18:47 IMPRESSION: 1. No acute intracranial findings. 2. Left frontal scalp contusion/hematoma. All radiology interpretation(s) finalized by discharge Discharge Plan Discharge Patient Disposition: Home Clinical Impression: CHI (closed head injury) Condition: Stable Prescriptions: No Action aspirin [Adult Aspirin Regimen] 81 mg tablet,delayed release (DR/EC) 81 mg PO DAILY Janumet 50-1,000 mg tablet 1 tab PO BID Qty: 180 3RF albuterol sulfate 90 mcg/actuation HFA aerosol inhaler 2 puff inhalation Q4H PRN (Reason: shortness of breath or wheezing) Qty: 8.5 2RF Spiriva Respimat 1.25 mcg/actuation mist 2 puff inhalation DAILY Qty: 4 1RF Debrox 6.5 % drops 10 drp otic (ear) Q12H 4 Days Qty: 15 0RF lisinopril 20 mg tablet See Rx Instructions .ROUTE .COMPLEX Qty: 90 1RF Dose Instruction: TAKE ONE TABLET BY MOUTH ONCE DAILY Rx Instructions: TAKE ONE TABLET BY MOUTH ONCE DAILY glimepiride 2 mg tablet See Rx Instructions .ROUTE .COMPLEX Qty: 180 0RF Dose Instruction: TAKE ONE TABLET BY MOUTH TWICE DAILY Rx Instructions: TAKE ONE TABLET BY MOUTH TWICE DAILY Eliquis 5 mg tablet See Rx Instructions .ROUTE .COMPLEX Qty: 180 0RF Dose Instruction: TAKE ONE TABLET BY MOUTH TWICE DAILY Rx Instructions: TAKE ONE TABLET BY MOUTH TWICE DAILY Discharge Orders: Discharge ED (Routine); Ordered 07/25/24 Ordered By: Chris Comer Referrals: eNeru Hickey NP [Primary Care Provider] - Discharge Diet: Advance as tolerated Discharge Activity: Resume usual activity Patient Instructions: Head Injury (ED) Coding Level of Care Code ED Warp Bleaching Vat Tender for Deann Morton
[2024-07-25 20:11] VITALS: BP 145/86; PULSE 85; O2SAT 95
== END 2024-07-25 20:13 | disposition home or self-care (01) ==
PROVIDERS: Emergency Provider Emergency Medicine; PCP Nurse Practitioner Family
DX: S00.03XA Contusion of scalp, initial encounter (principal); S51.812A Laceration without foreign body of left forearm, initial encounter; Z79.82 Long term (current) use of aspirin; Z79.01 Long term (current) use of anticoagulants; Z79.84 Long term (current) use of oral hypoglycemic drugs; E11.9 Type 2 diabetes mellitus without complications; J44.9 Chronic obstructive pulmonary disease, unspecified; I10 Essential (primary) hypertension; Z87.891 Personal history of nicotine dependence; W01.0XXA Fall on same level from slipping, tripping and stumbling without subsequent striking against object, initial encounter
CPT/HCPCS: 70450; 99284

== ENCOUNTER → 2024-12-28 10:00 | Outpatient (BNVA) | payer MEDICARE, SELFPAY | PROVIDERS: PCP Nurse Practitioner Family; Visit Provider Nurse Practitioner Family | DX: I10 Essential (primary) hypertension (principal); E11.9 Type 2 diabetes mellitus without complications; J44.9 Chronic obstructive pulmonary disease, unspecified | CPT/HCPCS: 80053; 80061; 82043; 83036 ==